=== PATIENT | male | born 1950 | race Caucasian/White ===

== ENCOUNTER 2018-11-22 14:36 | Emergency (ER) | payer MEDICARE, OTHER ==
[~2018-11-22] VITALS: Ht 175.3 cm; Wt 89.4 kg
[~2018-11-22 14:36] MED LIST: ALBU3IS INH; AMLO10 PO; ASPI81CH PO; AZIT250 PO; CARV6.25 PO; CEPH500 PO; CHOL10002 PO; DOCU100 PO; GEMF600 PO; LISI20 PO; Omeprazole20 M1 PO; Pravachol40 MG PO; TAMS.4ER PO; Zofran Odt4 MG SL
[2018-11-22] MEDS ORDERED: GUAI600T33 PO (15:28)
== END 2018-11-22 15:41 | disposition home or self-care (01) ==
LOC: ER 14:36
DX: B02.9 Zoster without complications (principal); Z79.899 Other long term (current) drug therapy; Z79.82 Long term (current) use of aspirin; I10 Essential (primary) hypertension; J44.9 Chronic obstructive pulmonary disease, unspecified; I25.10 Atherosclerotic heart disease of native coronary artery without angina pectoris; I25.2 Old myocardial infarction; F17.210 Nicotine dependence, cigarettes, uncomplicated
CPT/HCPCS: 99282

== ENCOUNTER → 2018-12-02 | Outpatient (CLI) | payer MEDICARE, OTHER ==
[~2018-12-02] MED LIST changes: +GUAI600T33 PO
[2018-12-02 17:37] LABS: Protein, Urine Quantitative 141.7 mg/dL (0.0-11.9)
== END | disposition home or self-care (01) ==
LOC: LAB SHORT 15:26 → LAB 15:26 → LAB FUT 11-23 15:00
PROVIDERS: Internal Medicine Nephrology
DX: Z79.01 Long term (current) use of anticoagulants (principal); Z51.81 Encounter for therapeutic drug level monitoring; N18.3 Chronic kidney disease, stage 3 (moderate); D63.1 Anemia in chronic kidney disease; N25.81 Secondary hyperparathyroidism of renal origin; E55.9 Vitamin D deficiency, unspecified; R76.9 Abnormal immunological finding in serum, unspecified; R94.5 Abnormal results of liver function studies; G60.9 Hereditary and idiopathic neuropathy, unspecified
CPT/HCPCS: 81050; 82043; 82570; 84156

== ENCOUNTER 2019-04-03 09:16 | Inpatient (IN) | payer MEDICARE, OTHER ==
[~2019-04-03] VITALS: Ht 175.3 cm; Wt 82.8 kg
[~2019-04-03 09:16] MED LIST changes: -AMLO10 PO; -ASPI81CH PO; -CARV6.25 PO; -CHOL10002 PO; -DOCU100 PO; -GEMF600 PO; -LISI20 PO; -Omeprazole20 M1 PO; -Pravachol40 MG PO; -TAMS.4ER PO
[2019-04-03 09:38] LABS: BASOPHILS ABSOLUTE AUTO 0.03 K/mm3 (0.00-0.23); BASOPHILS PERCENT AUTO 0 % (0-2); EOSINOPHILS PERCENT AUTO 0 % (0-6); Hematocrit 36.8 % (37.0-53.0); Hemoglobin 12.4 g/dL (13.5-17.5); IMMATURE GRAN ABSOLUTE AUTO 0.05 K/mm3 (0.00-0.10); IMMATURE GRAN PERCENT AUTO 0 % (0-1); LYMPHOCYTES ABSOLUTE AUTO 0.85 K/mm3 (0.84-5.20); LYMPHOCYTES PERCENT AUTO 7 % (21-46); MONOCYTES ABSOLUTE AUTO 0.64 K/mm3 (0.16-1.47); MONOCYTES PERCENT AUTO 5 % (4-13); Mean Corpuscular HGB Conc 33.7 g/dL (31.5-36.5); Mean Corpuscular Volume 89 fL (80-100); Mean Platelet Volume 10.3 fL (9.1-12.4); NEUTROPHILS ABSOLUTE AUTO 10.93 K/mm3 (1.96-9.15); NEUTROPHILS PERCENT AUTO 88 % (41-73); Platelet Count 198 K/mm3 (150-400); RDW Coefficient Variation 13.5 % (11.7-14.2); RDW Standard Deviation 44.3 fL (35.1-46.3); Red Blood Cell Count 4.13 M/mm3 (4.30-5.90)
[2019-04-03 09:59] LABS: Alanine Aminotransfer (ALT/SGP 12 U/L (12-78); Albumin, Blood 3.5 g/dL (3.4-5.0); Alk Phos 64 U/L (50-136); Anion Gap 8 mmol/L (6-16); Aspartate Aminotrans (AST/SGOT 14 U/L (12-37); Bilirubin, Total 0.4 mg/dL (0.1-1.0); Blood Urea Nitrogen 23 mg/dL (8-24); Bun/Creatinine Ratio 13.5 (12.0-20.0); CO2, Blood 22 mmol/L (21-32); Calcium, Blood 8.5 mg/dL (8.5-10.1); Chloride, Blood 104 mmol/L (98-108); Globulin, Blood 3.5 g/dL (2.2-4.0); Glomerular Filtration Rate 43 (60-); Glucose, Blood 135 mg/dL (70-99); Sodium, Blood 134 mmol/L (136-145); Troponin I <0.015 ng/mL (0.000-0.040)
[2019-04-03 10:56] LABS: PCO2 Arterial 35.2 mmHg (35-45); pH Blood Arterial 7.42 (7.35-7.45)
[2019-04-03 12:17] LABS: Influenza A Negative (NEGATIVE); Influenza B Negative (NEGATIVE)
[2019-04-03] MEDS ORDERED: Pravachol40 MG PO (12:47)
[2019-04-03] MEDS ORDERED: TAMS.4ER PO (12:47)
[2019-04-03] MEDS ORDERED: Omeprazole20 M1 PO (12:48)
[2019-04-03] MEDS ORDERED: ZESTRIL40 M1 PO (12:48)
[2019-04-03] MEDS ORDERED: CARVEDILOL12.5 MG PO (12:48)
[2019-04-03] MEDS ORDERED: AMLO10 PO (12:49)
[2019-04-03] MEDS ORDERED: GEMF600 PO (12:49)
[2019-04-03] MEDS ORDERED: CALC.25 PO (12:50)
[2019-04-03] MEDS ORDERED: RAYALDEE30 MCG PO (12:50)
[2019-04-03] MEDS ORDERED: Aspir 8181 MG PO (12:52)
[2019-04-03] MEDS ORDERED: DOCU100 PO (12:53)
[2019-04-03] MEDS ORDERED: THERA-D2000 UNIT PO (12:53)
[2019-04-03] MEDS ORDERED: Fish Oil 10001000 MG PO (14:03)
[2019-04-03] MEDS ORDERED: MUCUS RELIEF400 MG PO (14:04)
[2019-04-03] MEDS ORDERED: VITAMIN B-121000 MC3 PO (14:04)
--- NOTE | 2019-04-03 17:25 | NUR ---
ADMITTED TO PCU 8. PT ARRIVED VIA GURNEY ESCORTED BY LEXI ALLISON. RN REPORTED THAT PT DROPPED HIS O2 SATS DURING TRANSPORT AND WAS PLACED ON 10L OXYMIZER. PT WAS TRANSFERRED TO THE HOSPITAL BED AND ENCOURAGED TO TAKE DEEP BREATHS AND COUGH. PT'S SP02 IMPROVED TO 92% ON 10L. PT DECLINES FEELING SOB.
[2019-04-03 22:16] LABS: Adenovirus Not Detected (NOT DETECT); Coronavirus 229E Not Detected (NOT DETECT); Coronavirus HKU1 Not Detected (NOT DETECT); Coronavirus NL63 Not Detected (NOT DETECT); Coronavirus OC43 Not Detected (NOT DETECT); Human Metapneumovirus Not Detected (NOT DETECT); Human Rhinovirus/Enterovirus Not Detected (NOT DETECT); Influenza A Not Detected (NOT DETECT); Influenza A/2009-H1 Not Detected (NOT DETECT); Influenza A/H1 Not Detected (NOT DETECT); Influenza A/H3 Not Detected (NOT DETECT); Influenza B Not Detected (NOT DETECT); Parainfluenza Virus 1 Detected (NOT DETECT); Parainfluenza Virus 2 Not Detected (NOT DETECT); Parainfluenza Virus 3 Not Detected (NOT DETECT); Parainfluenza Virus 4 Not Detected (NOT DETECT); Respiratory Syncytial Virus Not Detected (NOT DETECT)
[2019-04-03 22:17] LABS: Bordetella pertussis Not Detected (NOT DETECT); Chlamydophila pneumoniae Not Detected (NOT DETECT); Mycoplasma pneumoniae Not Detected (NOT DETECT)
--- NOTE | 2019-04-04 02:58 | NUR ---
SHIFT SUMMARY: 68 Y/O MALE HAD UNEVENTFUL NIGHT AT BEGINNING OF SHIFT WHILE WEARING O2 AT 10L/M VIA OXIMIZER, VOIDING QS WITHOUT ISSUE; PT AT 0230 BECAME INCREASINGLY ANXIOUS WITH PATIENT REMOVING CPAP, WAS CONTACTED BY REN ALLISON, CHARGE NURSE AND AN AIRVO AT 50 LITERS AT 85% WAS APPLIED WITH O2 SATS NOW 90% WHILE SITTING HIGH FOWLERS POSITION, ALERT AND ORIENTED X 4, DENIES PAIN, BED LOW POSITION WITH CALL LIGHT AT SIDE.
[2019-04-04 03:55] LABS: BASOPHILS ABSOLUTE AUTO 0.02 K/mm3 (0.00-0.23); BASOPHILS PERCENT AUTO 0 % (0-2); EOSINOPHILS PERCENT AUTO 0 % (0-6); Hematocrit 36.1 % (37.0-53.0); IMMATURE GRAN ABSOLUTE AUTO 0.05 K/mm3 (0.00-0.10); IMMATURE GRAN PERCENT AUTO 0 % (0-1); LYMPHOCYTES ABSOLUTE AUTO 1.07 K/mm3 (0.84-5.20); LYMPHOCYTES PERCENT AUTO 8 % (21-46); MONOCYTES ABSOLUTE AUTO 0.75 K/mm3 (0.16-1.47); MONOCYTES PERCENT AUTO 5 % (4-13); Mean Corpuscular HGB 29.9 pg (26.0-34.0); Mean Corpuscular HGB Conc 33.2 g/dL (31.5-36.5); Mean Corpuscular Volume 90 fL (80-100); Mean Platelet Volume 10.2 fL (9.1-12.4); NEUTROPHILS ABSOLUTE AUTO 12.29 K/mm3 (1.96-9.15); NEUTROPHILS PERCENT AUTO 87 % (41-73); Platelet Count 181 K/mm3 (150-400); RDW Coefficient Variation 13.5 % (11.7-14.2); Red Blood Cell Count 4.01 M/mm3 (4.30-5.90); White Blood Cell Count 14.18 K/mm3 (4.00-11.30)
[2019-04-04 04:16] LABS: Bun/Creatinine Ratio 14.4 (12.0-20.0); Calcium, Blood 8.5 mg/dL (8.5-10.1); Creatinine, Blood 1.53 mg/dL (0.60-1.20); Potassium, Blood 3.6 mmol/L (3.5-5.5)
--- NOTE | 2019-04-04 06:00 | NUR ---
ASSUMED CARE AT 0330. VERY COMFORTABLE ON AIRVO NOW AT 90% AND 50L. LUNG VERY COARSE T/O BOTH LUMGS . VERY HOARSE/HARSH/LOOSE COUGH. NON EXPECTORATED. MENTATION CLEAR WHEN CONVERSING
--- NOTE | 2019-04-04 08:00 | NUR ---
ASSUMED CARE PT ALERT AND ORIENTED. VS STABLE. 02 SATS 88-93% ON AIRVO 50L AND FIO2 90%. LS COARSE THROUGHOUT. OXYGEN NEEDS INCREASED SIGNIFICANTLY THROUGH THE NIGHT. DR. LAU CALLED AND NOTIFIED. NEW ORDERS TO RULE OUT PE, START IV SOLUMEDROL AND LASIX. PT HAS PRODUCTIVE COUGH WITH THICK GREEN SPUTUM. PT DESATURATES QUICKLY WITH MINIMAL MOVEMENT. NS INFUSING AT 150 TO BE DISCONTINUED. WILL CONTINUE TO MONITOR CLOSELY.
--- NOTE | 2019-04-04 17:50 | NUR ---
SHIFT SUMMARY PT ALERT AND ORIENTED. VS STABLE. HR NSR. BP STABLE. O2 SATS HAVE IMPROVED THIS AFTERNOON REMAINING ABOVE 90% ON AIRVO 50L FIO2 90%. PT DID USE CPAP WITH 15L BLEED IN FOR 2 HOURS THIS AFTERNOON WHILE SLEEPING. PT COUGHING UP THICK GREEN SPUTUM. PT REPORTS FEELING "EASIER TO BREATHE" THIS EVENING. PT DENIES ANY PAIN. WILL CONTINUE TO MONITOR AND REPORT TO ONCOMING RN. CALL LIGHT IN REACH.
[2019-04-05 04:11] LABS: BASOPHILS ABSOLUTE AUTO 0.02 K/mm3 (0.00-0.23); BASOPHILS PERCENT AUTO 0 % (0-2); EOSINOPHILS PERCENT AUTO 0 % (0-6); Hematocrit 36.5 % (37.0-53.0); Hemoglobin 12.3 g/dL (13.5-17.5); IMMATURE GRAN ABSOLUTE AUTO 0.08 K/mm3 (0.00-0.10); IMMATURE GRAN PERCENT AUTO 1 % (0-1); LYMPHOCYTES ABSOLUTE AUTO 0.65 K/mm3 (0.84-5.20); LYMPHOCYTES PERCENT AUTO 4 % (21-46); MONOCYTES ABSOLUTE AUTO 0.32 K/mm3 (0.16-1.47); MONOCYTES PERCENT AUTO 2 % (4-13); Mean Corpuscular HGB 30.3 pg (26.0-34.0); Mean Corpuscular HGB Conc 33.7 g/dL (31.5-36.5); Mean Corpuscular Volume 90 fL (80-100); Mean Platelet Volume 10.6 fL (9.1-12.4); NEUTROPHILS ABSOLUTE AUTO 13.96 K/mm3 (1.96-9.15); NEUTROPHILS PERCENT AUTO 93 % (41-73); Platelet Count 162 K/mm3 (150-400); RDW Coefficient Variation 13.2 % (11.7-14.2); RDW Standard Deviation 44.4 fL (35.1-46.3); Red Blood Cell Count 4.06 M/mm3 (4.30-5.90); White Blood Cell Count 15.03 K/mm3 (4.00-11.30)
[2019-04-05 04:40] LABS: Bun/Creatinine Ratio 16.3 (12.0-20.0); Calcium, Blood 8.5 mg/dL (8.5-10.1); Creatinine, Blood 1.47 mg/dL (0.60-1.20); Potassium, Blood 3.8 mmol/L (3.5-5.5)
--- NOTE | 2019-04-05 05:40 | NUR ---
SHIFT SUMMARY PT RESTING IN ROOM COMFORTABLY AT THIS TIME. NO ACUTE CHANGES IN STATUS T/O NIGHT. PT SLEPT IN SHORT PERIODS, AND WOKE EASILY TO VERBAL. RESP EVEN, AND SLIGHTLY TACHY W/ EXERTION AT TIMES ON AIRVO AT 55L SATS 88-93%. PT WORE CPAP FOR SHIORT PERIODS OF TIME, WHEN ON CPAP SATS WERE >96%. DENIED CP T/O NIGHT. REPORTS COUGH THAT WAS BECOMING MORE PRODUCTIVE BUT STILL UNABLE TO COUGH ANY SPUTUM UP. DENIED OTHER NEEDS. PT ABLE TO STAND AND USE BSC WITH SBA, AND SOME DYSNPNEA W/ EXERTION. CALL LIGHT IN REACH.
--- NOTE | 2019-04-05 08:14 | NUR ---
pt laying in bed awake a/ox3, pleasant and cooperative with care, follows commands well, denies pain, states he is feeling a lot better than he was when he came in, he is currently on airvo at 55l, 85% lungs are course t/o, resp even and unlabored, no cough noted at this time, he report bringing up some phlem yesterday, hrr, tele in place running sr per monitor, see strip, no edema noted, ppp+1, cap refill <3sec, vs stable, afebrile, iv site is clear and patent, btx4, abd flat soft nontender, voids without diff, skin c/w/d, maew, sheela, call light in reach.
--- NOTE | 2019-04-05 12:28 | NUR ---
pt states he is doing ok, he is laying leaned over on his left side, asked him several times if I can reposition him, he said he can move himself and is comfortable right now, eating lunch at this time, no further needs. call light in reach.
--- NOTE | 2019-04-05 14:22 | NUR ---
Patient is lying in bed and alert. Patient openly shares about his family history and family unit complications, about his spiritual journey (patient currently attends [facility] in [place]) and about his many careers. Patient tells about the pain and struggles in life and also the victories. I listen empathically, hear confession, normalize patient experience, reinforce helpful attitudes and practices and provide pastoral clinical counselor and prayer. Patient responds well and shows signs of catharsis. Patient voices appreciation for the visit. I will continue to remain avialable to patient and family.
--- NOTE | 2019-04-05 18:16 | NUR ---
pt sitting up in bed eating dinner and visiting with people in room. states he's doing good, sats are 94%, denies any complaints or needs at this time, call light in reach.
[2019-04-06 03:58] LABS: BASOPHILS ABSOLUTE AUTO 0.01 K/mm3 (0.00-0.23); BASOPHILS PERCENT AUTO 0 % (0-2); EOSINOPHILS PERCENT AUTO 0 % (0-6); Hematocrit 34.6 % (37.0-53.0); Hemoglobin 11.8 g/dL (13.5-17.5); IMMATURE GRAN PERCENT AUTO 1 % (0-1); LYMPHOCYTES ABSOLUTE AUTO 0.63 K/mm3 (0.84-5.20); LYMPHOCYTES PERCENT AUTO 4 % (21-46); MONOCYTES ABSOLUTE AUTO 0.25 K/mm3 (0.16-1.47); MONOCYTES PERCENT AUTO 2 % (4-13); Mean Corpuscular HGB 29.9 pg (26.0-34.0); Mean Corpuscular HGB Conc 34.1 g/dL (31.5-36.5); Mean Corpuscular Volume 88 fL (80-100); Mean Platelet Volume 11.1 fL (9.1-12.4); NEUTROPHILS ABSOLUTE AUTO 15.06 K/mm3 (1.96-9.15); NEUTROPHILS PERCENT AUTO 94 % (41-73); Platelet Count 180 K/mm3 (150-400); RDW Coefficient Variation 13.2 % (11.7-14.2); RDW Standard Deviation 41.9 fL (35.1-46.3); Red Blood Cell Count 3.95 M/mm3 (4.30-5.90); White Blood Cell Count 16.05 K/mm3 (4.00-11.30)
[2019-04-06 04:24] LABS: Albumin, Blood 2.7 g/dL (3.4-5.0); Albumin/Globulin Ratio 0.7 (0.8-1.8); Bilirubin, Total 0.2 mg/dL (0.1-1.0); Bun/Creatinine Ratio 20.7 (12.0-20.0); Calcium, Blood 8.4 mg/dL (8.5-10.1); Creatinine, Blood 1.69 mg/dL (0.60-1.20); Globulin, Blood 3.7 g/dL (2.2-4.0); Potassium, Blood 3.9 mmol/L (3.5-5.5); Total Protein, Blood 6.4 g/dL (6.4-8.2)
--- NOTE | 2019-04-06 18:22 | NUR ---
SHIFT SUMMARY PT RESTING IN BED THROUGHOUT THE DAY. VSS. ALERT AND ORIENTED X3. DENIES PAIN THROUGHOUT THE DAY. LUNG SOUNDS COARSE THROUGHOUT, ON AIRVO 55L / 60% SATURATIONS 89-93%. NSR RATE 70-80s PER TELEMETRY. C/O NUMBNESS / TINGLING TO RIGHT HAND AND BLE. PT UP TO BEDSIDE COMMODE AND UP TO RECLINER TODAY AND TOLERATED WELL. WILL CONTINUE TO MONITOR AND REPORT OFF TO LOBBY PORTER RN.
[2019-04-07 03:47] LABS: BASOPHILS ABSOLUTE AUTO 0.01 K/mm3 (0.00-0.23); BASOPHILS PERCENT AUTO 0 % (0-2); EOSINOPHILS PERCENT AUTO 0 % (0-6); Hematocrit 35.8 % (37.0-53.0); Hemoglobin 12.5 g/dL (13.5-17.5); IMMATURE GRAN ABSOLUTE AUTO 0.16 K/mm3 (0.00-0.10); IMMATURE GRAN PERCENT AUTO 1 % (0-1); LYMPHOCYTES ABSOLUTE AUTO 0.95 K/mm3 (0.84-5.20); LYMPHOCYTES PERCENT AUTO 6 % (21-46); MONOCYTES ABSOLUTE AUTO 0.56 K/mm3 (0.16-1.47); MONOCYTES PERCENT AUTO 4 % (4-13); Mean Corpuscular HGB 30.3 pg (26.0-34.0); Mean Corpuscular HGB Conc 34.9 g/dL (31.5-36.5); Mean Corpuscular Volume 87 fL (80-100); Mean Platelet Volume 10.8 fL (9.1-12.4); NEUTROPHILS ABSOLUTE AUTO 13.73 K/mm3 (1.96-9.15); NEUTROPHILS PERCENT AUTO 89 % (41-73); Platelet Count 207 K/mm3 (150-400); RDW Coefficient Variation 13.1 % (11.7-14.2); RDW Standard Deviation 41.3 fL (35.1-46.3); Red Blood Cell Count 4.13 M/mm3 (4.30-5.90); White Blood Cell Count 15.41 K/mm3 (4.00-11.30)
[2019-04-07 04:05] LABS: Bun/Creatinine Ratio 24.1 (12.0-20.0); Calcium, Blood 8.4 mg/dL (8.5-10.1); Creatinine, Blood 1.7 mg/dL (0.60-1.20); Potassium, Blood 4.1 mmol/L (3.5-5.5)
--- NOTE | 2019-04-07 06:10 | NUR ---
SHIFT SUMMARY PT SLEEPING IN ROOM COMFORTABLY AT THIS TIME. PT HAD NO ACUT CHANGES IN STATUS T/O NIGHT. DENIED CP. PT ONLY REPORTED DYSNPEA W/ EXERTION WHEN GETTING UP TO BSC. RESP OTHERWSIE EVEN UNLABORED AT REST ON AIRVO 55L AND 60%. PT TOLERATING AIRVO WELL. DID NOT WEAR CPAP AT ALL DURING NIGHT. PT SLEPT WELL. UP TO BSC W/ SBA. DENIED PAIN. CALL LIGHT IN REACH.
--- NOTE | 2019-04-07 08:44 | NUR ---
pt laying in bed on his side, eating breakfast, a/ox3, pleasant and cooperative with care, follows commands well, denies pain, lungs are course t/o, with some wheezing noted to bases, he continues on airvo, reports productive cough of yellow/white sputum, hrr, tele in place running sr per monitor, see strip, no edema noted, ppp+1, cap refill <3sec, vs stable, afebrile, iv site is clear and patent, btx4, abd flat soft nontender, he reports no bm since being in hosp, will ask for bowel care, voids without diff, skin c/w/d, maew, sheela, call light in reach.
--- NOTE | 2019-04-07 10:49 | NUR ---
Pt alert working on his computer states he is better today. Review of symptoms he has minimal pain mostly to his neck denies headaches or dizziness, no nausea, moderate appetite, some constipation. Sleep is ok sometimes has to sleep in chair. Pt. has a strong support system with his children. He states he does not have a formal will or poa or AD. He states that his children are well versed in his wishes and desires and they are willing to make decisions. 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 We discussed future care and help to preserve energy. He sees his primay doctor and doctor Tovar for his renal function. He has not seen a staff technologist in quite some time. Pt did not want to discuss prognosis or his future living situaltion. His daughter is staying with him more. He stays alone at night with his emergency alert button. He is secure in getting his medications and groceries. We discussed palliation and comfort of ventilation and airhunger. Pt is a high fall risk and high risk of readmission. He states he is ready to quit smoking. His family is going to quit also to support him. We discussed filling out a POLST to have in his home and on record. He will speak with his daughte and we will fill one out. Will review pt with care team for plan of care strategies. Suggest hisgh risk program and Pulmonology consult.
--- NOTE | 2019-04-07 12:12 | NUR ---
pt doing well, he denies any complaints. states he will get up to chair for lunch, no needs at this time, did get miralax ordered for him. call light in reach.
--- NOTE | 2019-04-07 14:45 | NUR ---
Spiritual care visit conducted. Patient is lying in bed and alert. Patient shares details about his past, his current struggles in life and about his medical conditions. I listen empathically, hear confession, provided spiritual guidance and prayer. Patient expresses appreciation for the visit.
--- NOTE | 2019-04-07 17:53 | NUR ---
pt doing well, no complaints or changes, he did have a bm after getting miralax, reports that feels better. no further changes this shift. call light in reach.
--- NOTE | 2019-04-07 18:22 | NUR ---
pt dompleted polst at this point still wants full treatment. Daughter was present and we discussed roa and AD they are motivated to complete. review of home health and home care with patient and encouraged. confrence with amedysis nurse on plan of care.
--- NOTE | 2019-04-07 20:00 | NUR ---
CARE ASSUMPTION PT A&O X4. VSS. LUNG SOUNDS COARSE W/ EXP WHEEZE IN BILAT BASES. SPO2 > 92% ON AIRVO @ 45L, 53%. MONITOR SHOWS NSR W/ PAC's, HR 70's. PT REPORTS "I'M FEELING MUCH BETTER. I WOKE UP TODAY, AND I'M DOING MUCH BETTER THAN WHEN I CAME IN." PT SBA TO BEDSIDE COMMODE W/ NO SOB. WILL CONTINUE TO MONITOR AND PROVIDE CARE.
--- NOTE | 2019-04-08 05:45 | NUR ---
SHIFT SUMMARY PT CONTINUES TO BE A&O X4. VSS. SPO2 > 92% ON AIRVO @ 45L, 53-54% THIS SHIFT. NO EVENTS OR CHANGES OVER NIGHT. WILL CONTINUE TO MONITOR AND PROVIDE CARE UNTIL REPORT OFF TO DAY SHIFT RN.
[2019-04-08 09:04] LABS: BASOPHILS ABSOLUTE AUTO 0.01 K/mm3 (0.00-0.23); BASOPHILS PERCENT AUTO 0 % (0-2); EOSINOPHILS ABSOLUTE AUTO 0.01 K/mm3 (0.00-0.68); EOSINOPHILS PERCENT AUTO 0 % (0-6); Hematocrit 36.3 % (37.0-53.0); Hemoglobin 12.4 g/dL (13.5-17.5); IMMATURE GRAN ABSOLUTE AUTO 0.13 K/mm3 (0.00-0.10); IMMATURE GRAN PERCENT AUTO 2 % (0-1); LYMPHOCYTES ABSOLUTE AUTO 1.54 K/mm3 (0.84-5.20); LYMPHOCYTES PERCENT AUTO 17 % (21-46); MONOCYTES ABSOLUTE AUTO 0.34 K/mm3 (0.16-1.47); MONOCYTES PERCENT AUTO 4 % (4-13); Mean Corpuscular HGB Conc 34.2 g/dL (31.5-36.5); Mean Corpuscular Volume 88 fL (80-100); NEUTROPHILS PERCENT AUTO 77 % (41-73); Platelet Count 196 K/mm3 (150-400); RDW Coefficient Variation 13.1 % (11.7-14.2); RDW Standard Deviation 41.9 fL (35.1-46.3); Red Blood Cell Count 4.13 M/mm3 (4.30-5.90); White Blood Cell Count 8.83 K/mm3 (4.00-11.30)
--- NOTE | 2019-04-08 09:09 | NUR ---
pt laying in bed working on his computer, and watching tv. a/ox3, pleasant and cooperative with care, follows commands well, denies pain, state he really feels better today, reports congestion is breaking up in his chest and is bringing up a lot of phlem, he describes it as white, it looks rizzo in the cup he is using, lungs are less course, can auscultate more air movement, he continues on airvo, resp even and unlabored at rest, does become mildly labored with activity, hrr, tele in place running sr per monitor, see strip, no edema noted, ppp+2, cap refill <3sec, vs stable, afebrile, iv site is clear and patent, to rac, btx4, abd flat soft nontender, last bm yesterday, voids without diff, skin c/w/d, maew, sheela, call light in reach.
[2019-04-08 09:19] LABS: Bun/Creatinine Ratio 23.3 (12.0-20.0); Calcium, Blood 8.3 mg/dL (8.5-10.1); Creatinine, Blood 1.63 mg/dL (0.60-1.20)
--- NOTE | 2019-04-08 11:46 | NUR ---
pt up to chair, is asking to go back to bed after 20 mins, encouraged to stay in chair for a few hrs. airvo has been titrated down. pt doing pretty well. call light in reach.
--- NOTE | 2019-04-08 17:36 | NUR ---
PT QUITE PLEASANT COOP AND TALKATIVE TODAY. DENIES PAIN. STATES FEELS BETTER. LUNGS MOSTLY CLEAR THIS BRIANNE. O2 DOWN TO 8L ON HI FLOW N/C. PT STATES TOLERATES WELL. NO OTHER CONCERNS AT THIS TIME. PT SITTING UP ON EDGE OF BED MOST OF AFT PLAYING ON COMPUTER. BED IN LOW POSITION, CALL LITE IN REACH, CALLS APPROP
--- NOTE | 2019-04-08 19:43 | NUR ---
CARE ASSUMPTION PT A&O X4. VSS. MONITOR SHOWS, SR, HR 70's. LUNG SOUNDS CLEAR, DIM IN BASES. SPO2 > 92% ON 8L HI-EVE NC. PT REPORTS "I CAN ACTUALLY TAKE DEEP BREATHS FOR A CHANGE." PT SITTING UP IN BED, REPORTS HAVING BEEN UP WALKING IN ROOM TODAY W/OUT SOB. PT STATES "I KNOW JUST EXACTLY HOW TO PACE MYSELF AND IMPROVE." PT EXPRESSES READINESS TO GO HOME, BUT STATES NOT WANTING TO GO UNTIL THE DOCTOR FEELS PT'S READY. WILL CONTINUE TO MONITOR AND PROVIDE CARE.
[2019-04-09 03:29] LABS: BASOPHILS ABSOLUTE AUTO 0.02 K/mm3 (0.00-0.23); BASOPHILS PERCENT AUTO 0 % (0-2); EOSINOPHILS ABSOLUTE AUTO 0.01 K/mm3 (0.00-0.68); EOSINOPHILS PERCENT AUTO 0 % (0-6); Hematocrit 35.4 % (37.0-53.0); Hemoglobin 11.9 g/dL (13.5-17.5); IMMATURE GRAN ABSOLUTE AUTO 0.21 K/mm3 (0.00-0.10); IMMATURE GRAN PERCENT AUTO 2 % (0-1); LYMPHOCYTES ABSOLUTE AUTO 1.24 K/mm3 (0.84-5.20); LYMPHOCYTES PERCENT AUTO 11 % (21-46); MONOCYTES ABSOLUTE AUTO 0.61 K/mm3 (0.16-1.47); MONOCYTES PERCENT AUTO 6 % (4-13); Mean Corpuscular HGB 30.2 pg (26.0-34.0); Mean Corpuscular HGB Conc 33.6 g/dL (31.5-36.5); Mean Corpuscular Volume 90 fL (80-100); Mean Platelet Volume 10.6 fL (9.1-12.4); NEUTROPHILS ABSOLUTE AUTO 8.82 K/mm3 (1.96-9.15); NEUTROPHILS PERCENT AUTO 81 % (41-73); Platelet Count 214 K/mm3 (150-400); RDW Coefficient Variation 12.9 % (11.7-14.2); RDW Standard Deviation 43.2 fL (35.1-46.3); Red Blood Cell Count 3.94 M/mm3 (4.30-5.90); White Blood Cell Count 10.91 K/mm3 (4.00-11.30)
[2019-04-09 03:48] LABS: Calcium, Blood 8.5 mg/dL (8.5-10.1); Creatinine, Blood 1.79 mg/dL (0.60-1.20); Potassium, Blood 4.2 mmol/L (3.5-5.5)
--- NOTE | 2019-04-09 06:12 | NUR ---
SHIFT SUMMARY PT CONTINUES TO BE A&O X4. VSS. MONITOR SHOWS NSR, HR 60's-70's. LUNG SOUNDS CLEAR, DIM IN BASES. SPO2 > 90% ON 8L HI-EVE NC, TITRATED UP TO 10L X1 THIS D/T PT DESAT TO 85% WHILE RESTING IN BED. PT RECOVERY W/ RETURN TO SPO2 > 90% ON 8L NC. PT SBA TO BATHROOM W/ FWW. WILL CONTINUE TO MONITOR AND PROVIDE CARE UNTIL REPORT OFF TO DAY SHIFT RN.
--- NOTE | 2019-04-09 11:30 | NUR ---
PT ARRIVED VIA W/C FROM PCU AND TRANSFERRED TO HIS BED. AWAKE AND ALERT SITTING ON SIDE OF BED PREPARING TO PLAY ON HIS COMPUTER. DENIES ANY RESP DISTRESS. OXYGEN ON ARRIVAL SET AT 4L/M. USES A FWW WITH AMBULATION. ARRIVED SOON AFTER HE CAME TO THE FLOOR.
--- NOTE | 2019-04-09 11:32 | NUR ---
MORNING NOTE ASSUMED CARE OF PT AT 0700, PATIENT AWAKE AND ALERT IN BED IN NO SIGNS OF DISTRESS. MEDICATED AND TREATED PT PER UNIT PROTOCOL AND MD ORDER, PT DENIES PAIN, DENIES SOB. WILL CONTINUE TO MONITOR, BED LOCKED AND LOW, CALL LIGHT W/IN REACH
--- NOTE | 2019-04-09 18:21 | NUR ---
SHIFT SUMMARY PT HAS BEEN A 1 PERSON ASSIST TO BATHROOM WITH FWW. OXYGEN HAS BEEN DECREASED TO 1.5L/M AND NO RESP DISTRESS. SATS IN MID 90'S. HAS DENIED PAIN. PLAYING WITH COMPUTER FOR ENTERTAINMENT. FEELS HE MAY GO HOME TOMORROW.
--- NOTE | 2019-04-10 03:10 | NUR ---
PT REMAINS ON O2 PER NC. RESP TREATMENTS PER RT - SEE CORRESPONDING DOCUMENTATION. HAS BEEN RESTING QUIETLY WITH FEW INTERRUPTIONS - AT WHICH TIMES HE SEEMS TO HAVE COUGHING SPELLS. cALL LIGHT IN REACH. wILL CONTINUE TO MONITOR.
[2019-04-10 04:48] LABS: BASOPHILS ABSOLUTE AUTO 0.04 K/mm3 (0.00-0.23); BASOPHILS PERCENT AUTO 0 % (0-2); EOSINOPHILS ABSOLUTE AUTO 0.05 K/mm3 (0.00-0.68); EOSINOPHILS PERCENT AUTO 0 % (0-6); Hematocrit 37.8 % (37.0-53.0); Hemoglobin 12.8 g/dL (13.5-17.5); IMMATURE GRAN ABSOLUTE AUTO 0.57 K/mm3 (0.00-0.10); IMMATURE GRAN PERCENT AUTO 4 % (0-1); LYMPHOCYTES ABSOLUTE AUTO 1.26 K/mm3 (0.84-5.20); LYMPHOCYTES PERCENT AUTO 9 % (21-46); MONOCYTES ABSOLUTE AUTO 0.88 K/mm3 (0.16-1.47); MONOCYTES PERCENT AUTO 6 % (4-13); Mean Corpuscular HGB 29.6 pg (26.0-34.0); Mean Corpuscular HGB Conc 33.9 g/dL (31.5-36.5); Mean Platelet Volume 10.6 fL (9.1-12.4); NEUTROPHILS ABSOLUTE AUTO 12.03 K/mm3 (1.96-9.15); NEUTROPHILS PERCENT AUTO 81 % (41-73); Platelet Count 264 K/mm3 (150-400); RDW Coefficient Variation 13.1 % (11.7-14.2); RDW Standard Deviation 41.2 fL (35.1-46.3); Red Blood Cell Count 4.33 M/mm3 (4.30-5.90); White Blood Cell Count 14.83 K/mm3 (4.00-11.30)
[2019-04-10 04:50] LABS: Mean Corpuscular Volume 87 fL (80-100)
[2019-04-10 04:59] LABS: Bun/Creatinine Ratio 25.6 (12.0-20.0); Calcium, Blood 8.5 mg/dL (8.5-10.1); Creatinine, Blood 1.76 mg/dL (0.60-1.20); Potassium, Blood 4.5 mmol/L (3.5-5.5)
[2019-04-10] MEDS ORDERED: ACET325 PO (11:55)
[2019-04-10] MEDS ORDERED: ALBU90OI INH (11:56)
[2019-04-10] MEDS ORDERED: ALBU3IS INH (11:57)
[2019-04-10] MEDS ORDERED: BENZ100A PO (11:57)
[2019-04-10] MEDS ORDERED: LEVO750 PO (11:58)
[2019-04-10] MEDS ORDERED: ONDA4ODT MM (11:59)
[2019-04-10] MEDS ORDERED: MIRALAX17 GM PO (12:00)
[2019-04-10] MEDS ORDERED: PRED10 PO (12:05)
[2019-04-10] MEDS ORDERED: Florastor250 MG PO (12:06)
--- NOTE | 2019-04-10 12:26 | NUR ---
8120 PATIENT TO DISCHARGE HOME ON HH. IV REMOVED WITH NO SS OF INFECTION NOTED. NURSE WENT OVER PAPER WORK AND EDUCATED PATIENT ON NEW MEDS AND INSTRUCTED TO FOLLOW UP WITH PCP. MEDS FAXED INTO [facility]. PATIENT TO USE WC TO BE TAKEN OUT TO DAUGHTERS CAR TO BE TAKEN HOME.
== END 2019-04-10 12:44 | disposition home health service (06) | DRG 193 ==
LOC: ER 09:16 → PCU 16:15 → MEDS 04-09 11:23 → ENPENDDIS 04-10 10:45 → EDPENDDIS 04-10 10:45 → MEDS 04-10 12:44
PROVIDERS: Emergency Medicine; ADMIT Family Medicine
DX: J13 Pneumonia due to Streptococcus pneumoniae (principal); J96.21 Acute and chronic respiratory failure with hypoxia; N17.9 Acute kidney failure, unspecified; J18.0 Bronchopneumonia, unspecified organism; J43.9 Emphysema, unspecified; Z95.5 Presence of coronary angioplasty implant and graft; I25.10 Atherosclerotic heart disease of native coronary artery without angina pectoris; I25.2 Old myocardial infarction; K21.9 Gastro-esophageal reflux disease without esophagitis; N40.0 Benign prostatic hyperplasia without lower urinary tract symptoms; F17.210 Nicotine dependence, cigarettes, uncomplicated; E87.5 Hyperkalemia; N18.3 Chronic kidney disease, stage 3 (moderate); I12.9 Hypertensive chronic kidney disease with stage 1 through stage 4 chronic kidney disease, or unspecified chronic kidney disease
CPT/HCPCS: 0099U; 36415; 36600; 71045; 71046; 71260; 80048; 80053; 82803; 83605; 83690; 83880; 84484; 85025; 85379; 87040; 87070; 87186; 87205; 87804; 93005; 93010; 94640; 94660; 94664; 94667; 94760; 94761; 94762; 96365; 97110; 97116; 97163; 97165; 97530; 98960; 99285-25; 99407; J0456; J0696; J1650; J1940; J1956; J2930; J7030; J7050; J7512; Q9967

== ENCOUNTER → 2019-06-01 | Outpatient (CLI) | payer MEDICARE, OTHER ==
[~2019-06-01] MED LIST changes: +ACET325 PO; +ALBU90OI INH; +AMLO10 PO; +Aspir 8181 MG PO; +BENZ100A PO; +CALC.25 PO; +CARVEDILOL12.5 MG PO; +DOCU100 PO; +Fish Oil 10001000 MG PO; +Florastor250 MG PO; +GEMF600 PO; +LEVO750 PO; +MIRALAX17 GM PO; +MUCUS RELIEF400 MG PO; +ONDA4ODT MM; +Omeprazole20 M1 PO; +PRED10 PO; +Pravachol40 MG PO; +RAYALDEE30 MCG PO; +TAMS.4ER PO; +THERA-D2000 UNIT PO; +VITAMIN B-121000 MC3 PO; +ZESTRIL40 M1 PO
== END ==
LOC: LAB 12:50 → LAB SHORT 12:50 → LAB FUT 05-30 13:45
PROVIDERS: Internal Medicine Nephrology
DX: N18.3 Chronic kidney disease, stage 3 (moderate) (principal); D63.1 Anemia in chronic kidney disease; R80.9 Proteinuria, unspecified; N40.1 Benign prostatic hyperplasia with lower urinary tract symptoms; D50.9 Iron deficiency anemia, unspecified
CPT/HCPCS: 81050; 82043; 82570; 84156

== ENCOUNTER → 2019-08-10 | Outpatient (CLI) | payer MEDICARE, OTHER ==
[2019-08-12 17:13] LABS: Creatinine Urine 74.8 mg/dL (27.00-270.00); Protein, Urine Quantitative 167.1 mg/dL (0.0-11.9)
== END | disposition home or self-care (01) ==
LOC: LAB SHORT 12:30 → OLS 12:30 → LAB FUT 08-08 13:05
PROVIDERS: Internal Medicine Nephrology
DX: N18.3 Chronic kidney disease, stage 3 (moderate) (principal); D63.1 Anemia in chronic kidney disease; N25.81 Secondary hyperparathyroidism of renal origin; E55.9 Vitamin D deficiency, unspecified; E78.00 Pure hypercholesterolemia, unspecified
CPT/HCPCS: 81050; 82108; 82570; 84156

== ENCOUNTER → 2019-12-06 | Outpatient (CLI) | payer MEDICARE, OTHER ==
[2019-12-06 17:18] LABS: Creatinine Urine 48.8 mg/dL (27.00-270.00); Protein, Urine Quantitative 70.8 mg/dL (0.0-11.9)
== END | disposition home or self-care (01) ==
LOC: LAB 14:55 → LAB SHORT 14:55 → LAB FUT 12-03 13:10
PROVIDERS: Internal Medicine Nephrology
DX: N18.3 Chronic kidney disease, stage 3 (moderate) (principal); D63.1 Anemia in chronic kidney disease; N25.81 Secondary hyperparathyroidism of renal origin; E55.9 Vitamin D deficiency, unspecified; E78.00 Pure hypercholesterolemia, unspecified
CPT/HCPCS: 81050; 82043; 82570; 84156

== ENCOUNTER → 2020-03-20 | Outpatient (CLI) | payer MEDICARE, OTHER ==
[2020-03-20 16:39] LABS: Calcium, Blood 9.3 mg/dL (8.5-10.1); Creatinine, Blood 2.24 mg/dL (0.60-1.20)
== END ==
LOC: LAB SHORT 14:53 → OLS 14:53 → LAB FUT 10-25 10:15
PROVIDERS: Internal Medicine Nephrology; Student in an Organized Health Care Education/Training Program
DX: Z12.5 Encounter for screening for malignant neoplasm of prostate (principal); N18.4 Chronic kidney disease, stage 4 (severe); N25.81 Secondary hyperparathyroidism of renal origin; E55.9 Vitamin D deficiency, unspecified
CPT/HCPCS: 36415; 82306; 82310; 82565; 83970; G0103

== ENCOUNTER → 2020-05-01 | Outpatient (CLI) | payer MEDICARE, SELFPAY ==
[2020-05-01 14:36] LABS: LDL/HDL RATIO 3.1; Very Low Density Lipoprot Chol 31 mg/dL (6-32)
[2020-05-01 14:37] LABS: Alanine Aminotransfer (ALT/SGP 16 U/L (12-78); Albumin, Blood 3.5 g/dL (3.4-5.0); Alk Phos 62 U/L (50-136); Anion Gap 9 mmol/L (6-16); Aspartate Aminotrans (AST/SGOT 11 U/L (12-37); Bilirubin, Total 0.5 mg/dL (0.1-1.0); Blood Urea Nitrogen 34 mg/dL (8-24); Bun/Creatinine Ratio 14.7 (12.0-20.0); CHOL/HDL RATIO 5.6; CO2, Blood 20 mmol/L (21-32); Calcium, Blood 9.4 mg/dL (8.5-10.1); Chloride, Blood 110 mmol/L (98-108); Cholesterol 117 mg/dL (50-200); Creatinine, Blood 2.32 mg/dL (0.60-1.20); Globulin, Blood 3.6 g/dL (2.2-4.0); Glomerular Filtration Rate 30 (60-); Glucose, Blood 86 mg/dL (70-99); HDL Cholesterol 21 mg/dL (>39); Low Density Lipoprotein Chol 65 mg/dL (0-110); Potassium, Blood 4.3 mmol/L (3.5-5.5); Sodium, Blood 139 mmol/L (136-145); Total Protein, Blood 7.1 g/dL (6.4-8.2); Triglycerides 155 mg/dL (30-160)
== END | disposition home or self-care (01) ==
LOC: LAB SHORT 12:33 → LAB 12:33
PROVIDERS: Nurse Practitioner
DX: E78.5 Hyperlipidemia, unspecified (principal); I10 Essential (primary) hypertension
CPT/HCPCS: 80053; 80061

== ENCOUNTER 2022-02-14 15:45 | Inpatient (IN) | payer MEDICARE ==
[~2022-02-14] VITALS: Ht 175.3 cm; Wt 72.0 kg
[~2022-02-14 15:45] MED LIST changes: -AMLODIPINE BESY10 MG PO; -ANORO ELLIPTA1 EAC1 IH; -Carvedilol12.5 MG PO; -GEMFIBROZIL600 MG PO; -GUAI200 PO; -LISI20 PO; -NICODERM CQ1 EA17 TOP; -OMEP20ER PO; -PRAV20 PO; -TAMSULOSIN HCL0.4 M1 PO; -VISBIOME 112.51 EACH PO
[2022-02-14 16:19] LABS: BASOPHILS ABSOLUTE AUTO 0.01 K/mm3 (0.00-0.23); BASOPHILS PERCENT AUTO 0 % (0-2); EOSINOPHILS ABSOLUTE AUTO 0.01 K/mm3 (0.00-0.68); EOSINOPHILS PERCENT AUTO 0 % (0-6); Hematocrit 30.7 % (37.0-53.0); IMMATURE GRAN ABSOLUTE AUTO 0.03 K/mm3 (0.00-0.10); IMMATURE GRAN PERCENT AUTO 1 % (0-1); LYMPHOCYTES ABSOLUTE AUTO 0.64 K/mm3 (0.84-5.20); LYMPHOCYTES PERCENT AUTO 15 % (21-46); MONOCYTES ABSOLUTE AUTO 0.12 K/mm3 (0.16-1.47); MONOCYTES PERCENT AUTO 3 % (4-13); Mean Corpuscular HGB 31.6 pg (26.0-34.0); Mean Corpuscular HGB Conc 35.8 g/dL (31.5-36.5); Mean Corpuscular Volume 88 fL (80-100); Mean Platelet Volume 10.8 fL (9.1-12.4); NEUTROPHILS ABSOLUTE AUTO 3.41 K/mm3 (1.96-9.15); NEUTROPHILS PERCENT AUTO 81 % (41-73); Platelet Count 151 K/mm3 (150-400); RDW Standard Deviation 45.1 fL (35.1-46.3); Red Blood Cell Count 3.48 M/mm3 (4.30-5.90); White Blood Cell Count 4.22 K/mm3 (4.00-11.30)
[2022-02-14 16:38] LABS: Albumin, Blood 3.5 g/dL (3.4-5.0); Albumin/Globulin Ratio 1.1 (0.8-1.8); Bilirubin, Total 0.5 mg/dL (0.1-1.0); Bun/Creatinine Ratio 12.8 (12.0-20.0); Calcium, Blood 8.7 mg/dL (8.5-10.1); Creatinine, Blood 2.82 mg/dL (0.60-1.20); Globulin, Blood 3.3 g/dL (2.2-4.0); Magnesium, Blood 1.8 mg/dL (1.6-2.4); Potassium, Blood 4.2 mmol/L (3.5-5.5); Total Protein, Blood 6.8 g/dL (6.4-8.2)
[2022-02-14 17:37] LABS: Influenza A, PCR NEGATIVE (NEGATIVE); Influenza B, PCR NEGATIVE (NEGATIVE); Resp Syncytial Virus, PCR NEGATIVE (NEGATIVE)
[2022-02-14] MEDS ORDERED: AMLODIPINE BESY10 MG PO (18:19)
[2022-02-14] MEDS ORDERED: GEMFIBROZIL600 MG PO (18:20)
[2022-02-14] MEDS ORDERED: LISI20 PO ×2 (18:20→18:21)
[2022-02-14] MEDS ORDERED: OMEP20ER PO ×2 (18:20→18:21)
[2022-02-14] MEDS ORDERED: ANORO ELLIPTA1 EAC1 IH (18:21)
[2022-02-14] MEDS ORDERED: TAMSULOSIN HCL0.4 M1 PO (18:21)
[2022-02-14] MEDS ORDERED: PRAV20 PO (18:21)
[2022-02-14] MEDS ORDERED: Carvedilol12.5 MG PO (18:25)
[2022-02-14] MEDS ORDERED: GEMF600 PO (18:26)
[2022-02-14] MEDS ORDERED: Aspir 8181 MG PO (18:26)
[2022-02-14] MEDS ORDERED: GUAI200 PO (18:27)
[2022-02-14 19:40] LABS: SARS-Cov-2 (COVID-19) PCR, MMC POSITIVE (NEGATIVE)
[2022-02-14 20:43] LABS: Anti-Xa UFH, PHA Monitoring <0.10 IU/mL; International Normalized Ratio 1.08; Prothrombin Time Results 11.3 Sec (9.7-11.5)
[2022-02-15 03:58] LABS: Hematocrit 30.5 % (37.0-53.0); Hemoglobin 10.8 g/dL (13.5-17.5); Mean Corpuscular HGB 31.3 pg (26.0-34.0); Mean Corpuscular HGB Conc 35.4 g/dL (31.5-36.5); Mean Corpuscular Volume 88 fL (80-100); Mean Platelet Volume 10.8 fL (9.1-12.4); Platelet Count 160 K/mm3 (150-400); RDW Coefficient Variation 13.7 % (11.7-14.2); RDW Standard Deviation 44.5 fL (35.1-46.3); Red Blood Cell Count 3.45 M/mm3 (4.30-5.90); White Blood Cell Count 3.18 K/mm3 (4.00-11.30)
[2022-02-15 04:16] LABS: Albumin, Blood 3.2 g/dL (3.4-5.0); Anion Gap 11 mmol/L (6-16); Blood Urea Nitrogen 35 mg/dL (8-24); Bun/Creatinine Ratio 13.7 (12.0-20.0); CO2, Blood 16 mmol/L (21-32); Calcium, Blood 8.3 mg/dL (8.5-10.1); Chloride, Blood 107 mmol/L (98-108); Creatinine, Blood 2.56 mg/dL (0.60-1.20); Glomerular Filtration Rate 26 (60-); Glucose, Blood 140 mg/dL (70-99); Magnesium, Blood 1.7 mg/dL (1.6-2.4); Phosphorus, Blood 3.8 mg/dL (2.5-4.9); Sodium, Blood 134 mmol/L (136-145)
--- NOTE | 2022-02-15 07:42 | NUR ---
ASSUMED CARE: PT RESTING IN BOOKER'S POSITION. CONGESTED SOUNDING COUGH NOTED. 15L HNC. PT STATES DOES NOT WEAR OXYGENT AT HOME. ENCOURAGED HIM TO PRONE OR CHANGE POSITIONS AND TO LAY ON BACK LITTLE POSSIBLE. NSR IN 60S AT THIS TIME. DENIES FURTHER NEEDS OR CONCERNS.
--- NOTE | 2022-02-15 09:58 | NUR ---
PT REMAINS ON 15L, SATTING 88-95%. ENCOURAGING REPOSITIONING AND TELLING PT TO STAY OFF OF HIS BACK MUCH POSSIBLE. RESIDENT WAS AT BEDSIDE WITH PT AND WAS MADE AWARE
--- NOTE | 2022-02-15 17:40 | NUR ---
SHIFT SUMMARY: PT CURRENTLY ON 13L VIA [facility]. PT HAS BEEN LAYING ON SIDE OR DANGLING AT SIDE OF BED FOR MEALS AND HAS NOTED EASE OF BREATHING AND INCREASE IN OXYGEN SATURATION. INDEPENDENT WITH URINAL BUT HAS STAYED IN BED. NSR ON TELE. DENIES NEEDS OR CONCERNS.
--- NOTE | 2022-02-16 04:58 | NUR ---
SHIFT SUMMARY PT A&Ox4, CALLS AND COMMUNICATES NEEDS APPROPRIATELY. VSS, SINUS WITH PAC's 80's. SpO2> 92% ON 13L VIA HFNC, PT DESATURATES TO MID 80's WHEN GETTING UP TO EDGE OF BED, RECOVERS TO 90's BEFORE LYING BACK DOWN. PT UP TO EGDE OF BED TO USE URINAL INDEPENDENTLY THROUGHOUT SHIFT. NO ACUTE EVENTS. WILL REPORT OFF TO DAY SHIFT RN.
[2022-02-16 05:43] LABS: Hematocrit 31.8 % (37.0-53.0); Hemoglobin 11.1 g/dL (13.5-17.5)
[2022-02-16 06:00] LABS: Albumin, Blood 3.3 g/dL (3.4-5.0); Anion Gap 9 mmol/L (6-16); Blood Urea Nitrogen 37 mg/dL (8-24); Bun/Creatinine Ratio 15.2 (12.0-20.0); CO2, Blood 21 mmol/L (21-32); Calcium, Blood 8.6 mg/dL (8.5-10.1); Chloride, Blood 108 mmol/L (98-108); Creatinine, Blood 2.43 mg/dL (0.60-1.20); Glomerular Filtration Rate 28 (60-); Glucose, Blood 98 mg/dL (70-99); Magnesium, Blood 1.9 mg/dL (1.6-2.4); Phosphorus, Blood 2.2 mg/dL (2.5-4.9); Potassium, Blood 3.7 mmol/L (3.5-5.5); Sodium, Blood 138 mmol/L (136-145)
--- NOTE | 2022-02-16 18:33 | NUR ---
SHIFT SUMMARY PT A/O X4; PLEASANT AND COOPERATIVE WITH CARE. REPORTS THAT HIS BREATHING FEELS MUCH BETTER TODAY AND TITRATED DOWN TO 11 LITERS O2. NO COMPLAINTS THIS SHIFT. VSS.
[2022-02-17 04:45] LABS: Hematocrit 30.5 % (37.0-53.0); Hemoglobin 10.5 g/dL (13.5-17.5); Mean Corpuscular HGB 30.6 pg (26.0-34.0); Mean Corpuscular HGB Conc 34.4 g/dL (31.5-36.5); Mean Corpuscular Volume 89 fL (80-100); Mean Platelet Volume 11.2 fL (9.1-12.4); Platelet Count 204 K/mm3 (150-400); RDW Coefficient Variation 13.7 % (11.7-14.2); RDW Standard Deviation 44.9 fL (35.1-46.3); Red Blood Cell Count 3.43 M/mm3 (4.30-5.90); White Blood Cell Count 6.87 K/mm3 (4.00-11.30)
[2022-02-17 05:12] LABS: Anion Gap 9 mmol/L (6-16); Blood Urea Nitrogen 43 mg/dL (8-24); Bun/Creatinine Ratio 16.9 (12.0-20.0); CO2, Blood 24 mmol/L (21-32); Calcium, Blood 7.6 mg/dL (8.5-10.1); Chloride, Blood 106 mmol/L (98-108); Creatinine, Blood 2.55 mg/dL (0.60-1.20); Glomerular Filtration Rate 26 (60-); Glucose, Blood 96 mg/dL (70-99); Magnesium, Blood 1.9 mg/dL (1.6-2.4); Potassium, Blood 3.5 mmol/L (3.5-5.5); Sodium, Blood 139 mmol/L (136-145)
--- NOTE | 2022-02-17 05:30 | NUR ---
SHIFT SUMMARY PT A&Ox4, CALLS AND COMMINICATES NEEDS APPROPRIATELY. VSS, SINUS 80's. PT TOLERATED TITRATING O2 DOWN TO 8L FROM 11L. SpO2> 92% ON 8L VIA HFNC. PT DID NOT DESATURATE WITH HIS FREQUENT ACTIVITY OF GETTING TO THE EDGE OF THE BED INDENDENLY TO USE THE URINAL. DENIES SOB AND CP. NO ACUTE EVENTS. WILL REPORT TO DAY SHIFT RN.
--- NOTE | 2022-02-17 17:49 | NUR ---
Shift Summary Pt alert, oriented, appears to be sleeping intermittently. Up to side of bed ind with urinal. Pt urine foul smelling, pt reports dysuria and increased frequency, new orders for UA, will collect specimen. Pt denies pain, chest pain/pressure, sob, nausea, dizziness and numb/tingling t/o shift. This am pt spo2 >90% on 10l o2 via nc, titrated down to 4l o2 via nc, pt desaturated to 70-80's while sleeping, titrated back up to 7l o2 via nc. Tele sinus 60-70's, bp stable. Abd soft, nontender, pt reports passing flatulence. Other vss. No other acute changes noted. Will continue to monitor unitl report given to oncoming rn.
[2022-02-17 18:15] LABS: Source, Urine Clean Catch
[2022-02-17 18:22] LABS: Appearance, Urine Hazy (Clear); Bilirubin, Urine Neg (Neg); Blood, Urine 3+ (Neg); Color, Urine Yellow (P-Yellow); Glucose Qualitative, Urine Neg (Neg); Ketones, Urine Neg (Neg); Leukocyte Esterase, Urine 3+ (Neg); Nitrite, Urine Neg (Neg); Protein, Urine 3+ (Neg); Urobilinogen, Urine NORM (Normal)
[2022-02-17 18:58] LABS: Bacteria Many /hpf; Squamous Epithelial Cells Rare /hpf (Few)
[2022-02-18 04:22] LABS: Hematocrit 30.9 % (37.0-53.0); Hemoglobin 10.5 g/dL (13.5-17.5)
[2022-02-18 04:38] LABS: Anion Gap 6 mmol/L (6-16); Blood Urea Nitrogen 40 mg/dL (8-24); CO2, Blood 25 mmol/L (21-32); Calcium, Blood 7.8 mg/dL (8.5-10.1); Chloride, Blood 108 mmol/L (98-108); Creatinine, Blood 2.22 mg/dL (0.60-1.20); Glomerular Filtration Rate 31 (60-); Glucose, Blood 82 mg/dL (70-99); Magnesium, Blood 1.8 mg/dL (1.6-2.4); Phosphorus, Blood 2.4 mg/dL (2.5-4.9); Potassium, Blood 3.6 mmol/L (3.5-5.5); Sodium, Blood 139 mmol/L (136-145)
--- NOTE | 2022-02-18 05:26 | NUR ---
SHIFT SUMMARY PT A&Ox4, CALLS AND COMMUNICATES NEEDS APPROPRIATELY. VSS, SpO2> 92% ON 6L VIA NC, PT DENIES SOB. SINUS 70's, DENIES CP. PT DID NOT DESATURATE WHEN INDEPENDENTLY GETTING TO EDGE OF BED TO USE URINAL. PT STATES THAT HE FEELS MUCH BETTER. NO ACUTE EVENTS. WILL REPORT TO DAY SHIFT RN.
--- NOTE | 2022-02-18 17:56 | NUR ---
END OF SHIFT SUMMARY: PATIENT DENIED CHEST PAIN OR SHORTNESS OF BREATH THROUGHOUT SHIFT. PATIENT TOLERATED RIDE SIDED CHEST TUBE WELL. PATIENT REPORTED SOME PAIN AT INSERTION SITE WITH MOVEMENT. CHEST TUBE SET TO SUCTION PER ORDERS. MINIMAL SEROUS-SANGINOUS DRAINAGE IN TUBING. SEROUS-SANGINOUS DRAINAGE PRESENT IN BANDAGE AT INSERTION SITE - NO CHANGES THROUGHOUT THE DAY. PATIENT SPO2 FROM 91-94% THROUGHOUT THE DAY. PATIENT UP TO CHAIR FOR DINNER WITHOUT EXERTIONAL SHORTNESS OF BREATH, CHEST PAIN, OR DECREASE IN SPO2.
--- NOTE | 2022-02-18 18:12 | NUR ---
END OF SHIFT SUMMARY: PATIENT DENIED SHORTNESS OF BREATH OR DIFFICULTY BREATHING THROUGHOUT THE SHIFT. BREATHING WAS EVEN AND REGULAR. PATIENT UP TO THE CHAIR FOR BREAKFAST. NO EXERTIONAL SHORTNESS OF BREATH NOTED OR DECREASE IN SPO2. PATIENT MAINTAINED SPO2 OR 94-96% THROUGHOUT THE SHIFT. RT WAS ABLE TO TITRATE THE PATIENT DOWN TO 4L. PATIENT TOLERATED WITHOUT SHORTNESS OR BREATH OR DIFFICULTY BREATHING. PATIENT CONTINUES TO HAVE AN OCCASIONAL, NON-PRODUCTIVE COUGH.
[2022-02-19 04:53] LABS: Hematocrit 27.6 % (37.0-53.0); Hemoglobin 9.6 g/dL (13.5-17.5)
[2022-02-19 05:14] LABS: Albumin, Blood 2.7 g/dL (3.4-5.0); Anion Gap 7 mmol/L (6-16); Blood Urea Nitrogen 48 mg/dL (8-24); Bun/Creatinine Ratio 20.7 (12.0-20.0); CO2, Blood 22 mmol/L (21-32); Calcium, Blood 7.6 mg/dL (8.5-10.1); Chloride, Blood 108 mmol/L (98-108); Creatinine, Blood 2.32 mg/dL (0.60-1.20); Glomerular Filtration Rate 29 (60-); Glucose, Blood 81 mg/dL (70-99); Magnesium, Blood 1.6 mg/dL (1.6-2.4); Phosphorus, Blood 2.8 mg/dL (2.5-4.9); Potassium, Blood 3.6 mmol/L (3.5-5.5); Sodium, Blood 137 mmol/L (136-145)
--- NOTE | 2022-02-19 08:26 | NUR ---
SHIFT SUMMARY PT AOX3, SOME CONFUSION DURING SHIFT REGARDING SURROUNDINGS AND INSTRUCTIONS GIVEN BY THIS RN. PT CALLS [employer] SPECIALIST LIGHT FOR NEEDS. PULLS OFF 02 WHETHER BY ACCIDENT OR PURPOSEFUL, PT WAS UNAWARE O2 WAS OFF OR WHY ALARMS WERE SOUNDING. FREQUENTLY PULLED AGAINST IV TUBING WITHOUT REALIZING. PT UP TO BEDSIDE TO USE URINAL THROUGHOUT SHIFT. O2 TURNED UP TO 6-8 L D/T DESAT WITH ACTIVITY AND AFTER PULLING OFF O2.
[2022-02-19] MEDS ORDERED: LEVO750 PO (12:58)
[2022-02-19] MEDS ORDERED: NICODERM CQ1 EA17 TOP (12:59)
[2022-02-19] MEDS ORDERED: VISBIOME 112.51 EACH PO (12:59)
--- NOTE | 2022-02-19 16:42 | NUR ---
DISCHARGE SUMMARY S/P ARF c RESPIRATORY FAILURE, A/O X4, VSS, PT ABLE TO WEEN OFF O2 TO RA AND MAINTAIN SATURATION OVER 94%, TOLERATING DIET, VOIDING WELL. DISCUSSED DISCHARGE INFORAMTION WITH THE PATIENT INCLUDING HOME CARE, MEDICATION CHANGES INCLUDING CONFIRMING HIS PHARMACY, ACTIVITY, FOLOW UP APPOINTMENTS, AND CONTACT INFORMATION SHOULD QUESTIONS COME UP AFTER DISCHARGE. PT DENIES ANY QUESTIONS AT TIME OF DISCHARGE. IV ACCESS DEVICES REMOVED AND NONE IN PLACE AT TIME OF DEPARTURE. PT ESCORTED OUT VIA WC TO [employer]IVATE [employer] TO GO HOME.
== END 2022-02-19 15:44 | disposition home health service (06) | DRG 177 ==
LOC: ER 15:45 → PCU 18:42 → ERHOLD 18:42 → PCU 18:42
PROVIDERS: Family Medicine; Internal Medicine Nephrology; Nurse Practitioner Acute Care; Student in an Organized Health Care Education/Training Program; ADMIT Internal Medicine
PROC: 8E0ZXY6 Isolation (ICD-10-PCS; principal; 2022-02-14)
PROC: 3E0DX3Z Introduction of Anti-inflammatory into Mouth and Pharynx, External Approach (ICD-10-PCS; 2022-02-14)
PROC: XW0DXM6 Introduction of Baricitinib into Mouth and Pharynx, External Approach, New Technology Group 6 (ICD-10-PCS; 2022-02-14)
PROC: 5A0945A Assistance with Respiratory Ventilation, 24-96 Consecutive Hours, High Flow/Velocity Cannula (ICD-10-PCS; 2022-02-14)
PROC: XW033E5 Introduction of Remdesivir Anti-infective into Peripheral Vein, Percutaneous Approach, New Technology Group 5 (ICD-10-PCS; 2022-02-16)
DX: U07.1 COVID-19 (principal); J96.01 Acute respiratory failure with hypoxia; E87.29 Other acidosis; E87.1 Hypo-osmolality and hyponatremia; N17.9 Acute kidney failure, unspecified; N18.4 Chronic kidney disease, stage 4 (severe); I50.32 Chronic diastolic (congestive) heart failure; I13.0 Hypertensive heart and chronic kidney disease with heart failure and stage 1 through stage 4 chronic kidney disease, or unspecified chronic kidney disease; N39.0 Urinary tract infection, site not specified; F17.210 Nicotine dependence, cigarettes, uncomplicated; K21.9 Gastro-esophageal reflux disease without esophagitis; E83.39 Other disorders of phosphorus metabolism; I25.10 Atherosclerotic heart disease of native coronary artery without angina pectoris; D63.1 Anemia in chronic kidney disease; N40.0 Benign prostatic hyperplasia without lower urinary tract symptoms; J43.9 Emphysema, unspecified; Z87.01 Personal history of pneumonia (recurrent); Z86.73 Personal history of transient ischemic attack (TIA), and cerebral infarction without residual deficits; Z86.718 Personal history of other venous thrombosis and embolism; Z98.52 Vasectomy status; Z98.890 Other specified postprocedural states
CPT/HCPCS: 0241U; 36415; 71045; 71260; 76770; 80053; 80069; 81001; 83735; 83880; 84145; 84484; 85014; 85018; 85025; 85027; 85379; 85520; 85610; 85730; 87077; 87086; 87186; 93005; 93010; 93306; 93970; 94640; 94664; 94760; 94761; 94762; 97116; 97162; 97530; 99285-25; A9270; C9399; J0248; J0696; J1644; J3010; J7030; J7040; J7050; J7060; J7070; Q9967

== ENCOUNTER → 2022-02-14 | Outpatient (CLI) | payer MEDICARE ==
[~2022-02-14] MED LIST changes: +AMLODIPINE BESY10 MG PO; +ANORO ELLIPTA1 EAC1 IH; +Carvedilol12.5 MG PO; +GEMFIBROZIL600 MG PO; +GUAI200 PO; +LISI20 PO; +NICODERM CQ1 EA17 TOP; +OMEP20ER PO; +PRAV20 PO; +TAMSULOSIN HCL0.4 M1 PO; +VISBIOME 112.51 EACH PO
[2022-02-14 14:13] LABS: BASOPHILS ABSOLUTE AUTO 0.01 K/mm3 (0.00-0.23); BASOPHILS PERCENT AUTO 0 % (0-2); EOSINOPHILS ABSOLUTE AUTO 0.02 K/mm3 (0.00-0.68); EOSINOPHILS PERCENT AUTO 1 % (0-6); Hematocrit 30.2 % (37.0-53.0); Hemoglobin 10.6 g/dL (13.5-17.5); IMMATURE GRAN ABSOLUTE AUTO 0.03 K/mm3 (0.00-0.10); IMMATURE GRAN PERCENT AUTO 1 % (0-1); LYMPHOCYTES ABSOLUTE AUTO 0.84 K/mm3 (0.84-5.20); LYMPHOCYTES PERCENT AUTO 20 % (21-46); MONOCYTES ABSOLUTE AUTO 0.32 K/mm3 (0.16-1.47); MONOCYTES PERCENT AUTO 7 % (4-13); Mean Corpuscular HGB 30.9 pg (26.0-34.0); Mean Corpuscular HGB Conc 35.1 g/dL (31.5-36.5); Mean Corpuscular Volume 88 fL (80-100); Mean Platelet Volume 10.9 fL (9.1-12.4); NEUTROPHILS ABSOLUTE AUTO 3.09 K/mm3 (1.96-9.15); NEUTROPHILS PERCENT AUTO 72 % (41-73); Platelet Count 159 K/mm3 (150-400); RDW Coefficient Variation 14.1 % (11.7-14.2); RDW Standard Deviation 45.1 fL (35.1-46.3); Red Blood Cell Count 3.43 M/mm3 (4.30-5.90); White Blood Cell Count 4.31 K/mm3 (4.00-11.30)
[2022-02-14 15:07] LABS: Albumin, Blood 3.5 g/dL (3.4-5.0); Albumin/Globulin Ratio 1.1 (0.8-1.8); Bilirubin, Total 0.4 mg/dL (0.1-1.0); Bun/Creatinine Ratio 12.5 (12.0-20.0); Calcium, Blood 8.4 mg/dL (8.5-10.1); Creatinine, Blood 2.87 mg/dL (0.60-1.20); Globulin, Blood 3.3 g/dL (2.2-4.0); Potassium, Blood 4.1 mmol/L (3.5-5.5); Thyroid Stimulating Hormone 0.971 uIU/mL (0.360-4.800); Total Protein, Blood 6.8 g/dL (6.4-8.2)
== END | disposition home or self-care (01) ==
LOC: LAB 13:59 → LAB SHORT 13:59
PROVIDERS: Chiropractor
DX: J44.1 Chronic obstructive pulmonary disease with (acute) exacerbation (principal); R60.0 Localized edema; R53.83 Other fatigue
CPT/HCPCS: 80053; 83880; 84443; 84484; 85025; 85379

== ENCOUNTER → 2022-05-06 | Outpatient (CLI) | payer MEDICARE ==
[~2022-05-06] MED LIST changes: +AMLODIPINE BESY10 MG PO; +ANORO ELLIPTA1 EAC1 IH; +Carvedilol12.5 MG PO; +GEMFIBROZIL600 MG PO; +GUAI200 PO; +LISI20 PO; +NICODERM CQ1 EA17 TOP; +OMEP20ER PO; +PRAV20 PO; +TAMSULOSIN HCL0.4 M1 PO; +VISBIOME 112.51 EACH PO
[2022-05-16 21:07] LABS: METANEPHRINE, PL 31.7 pg/mL (0.0-88.0)
== END ==
LOC: LAB SHORT 07:40 → LAB 07:40
PROVIDERS: Internal Medicine Nephrology
DX: N18.30 Chronic kidney disease, stage 3 unspecified (principal); D63.1 Anemia in chronic kidney disease; E55.9 Vitamin D deficiency, unspecified; E29.1 Testicular hypofunction; E27.0 Other adrenocortical overactivity; N40.1 Benign prostatic hyperplasia with lower urinary tract symptoms; R76.9 Abnormal immunological finding in serum, unspecified; R94.5 Abnormal results of liver function studies; R94.6 Abnormal results of thyroid function studies
CPT/HCPCS: 83835

== ENCOUNTER → 2022-06-10 | Outpatient (CLI) | payer MEDICARE ==
[2022-06-10 17:23] LABS: BASOPHILS ABSOLUTE AUTO 0.05 K/mm3 (0.00-0.23); BASOPHILS PERCENT AUTO 1 % (0-2); EOSINOPHILS ABSOLUTE AUTO 0.18 K/mm3 (0.00-0.68); EOSINOPHILS PERCENT AUTO 2 % (0-6); Hematocrit 34.2 % (37.0-53.0); Hemoglobin 12.2 g/dL (13.5-17.5); IMMATURE GRAN ABSOLUTE AUTO 0.03 K/mm3 (0.00-0.10); IMMATURE GRAN PERCENT AUTO 0 % (0-1); LYMPHOCYTES ABSOLUTE AUTO 1.78 K/mm3 (0.84-5.20); LYMPHOCYTES PERCENT AUTO 20 % (21-46); MONOCYTES ABSOLUTE AUTO 0.61 K/mm3 (0.16-1.47); MONOCYTES PERCENT AUTO 7 % (4-13); Mean Corpuscular HGB Conc 35.7 g/dL (31.5-36.5); Mean Corpuscular Volume 87 fL (80-100); Mean Platelet Volume 10.2 fL (9.1-12.4); NEUTROPHILS ABSOLUTE AUTO 6.42 K/mm3 (1.96-9.15); NEUTROPHILS PERCENT AUTO 71 % (41-73); Platelet Count 253 K/mm3 (150-400); RDW Coefficient Variation 14.2 % (11.7-14.2); RDW Standard Deviation 45.3 fL (35.1-46.3); Red Blood Cell Count 3.93 M/mm3 (4.30-5.90); White Blood Cell Count 9.07 K/mm3 (4.00-11.30)
[2022-06-10 17:33] LABS: Albumin/Globulin Ratio 1.2 (0.8-1.8); Bilirubin, Total 0.3 mg/dL (0.1-1.0); Bun/Creatinine Ratio 10.5 (12.0-20.0); Calcium, Blood 8.9 mg/dL (8.5-10.1); Creatinine, Blood 2.66 mg/dL (0.60-1.20); Globulin, Blood 3.4 g/dL (2.2-4.0); Potassium, Blood 3.9 mmol/L (3.5-5.5); Total Protein, Blood 7.4 g/dL (6.4-8.2)
== END | disposition home or self-care (01) ==
LOC: LAB SHORT 17:17
PROVIDERS: Physician Assistant
DX: N39.0 Urinary tract infection, site not specified (principal); R06.00 Dyspnea, unspecified
CPT/HCPCS: 80053; 83880; 84484; 85025; 87077; 87086; 87186

== ENCOUNTER → 2022-08-09 | Outpatient (CLI) | payer MEDICARE, OTHER ==
[2022-08-09 16:23] LABS: BASOPHILS ABSOLUTE AUTO 0.06 K/mm3 (0.00-0.23); BASOPHILS PERCENT AUTO 1 % (0-2); EOSINOPHILS ABSOLUTE AUTO 0.22 K/mm3 (0.00-0.68); EOSINOPHILS PERCENT AUTO 3 % (0-6); Hematocrit 32.8 % (37.0-53.0); Hemoglobin 11.5 g/dL (13.5-17.5); IMMATURE GRAN ABSOLUTE AUTO 0.02 K/mm3 (0.00-0.10); IMMATURE GRAN PERCENT AUTO 0 % (0-1); LYMPHOCYTES ABSOLUTE AUTO 1.71 K/mm3 (0.84-5.20); LYMPHOCYTES PERCENT AUTO 25 % (21-46); MONOCYTES PERCENT AUTO 6 % (4-13); Mean Corpuscular HGB 31.3 pg (26.0-34.0); Mean Corpuscular HGB Conc 35.1 g/dL (31.5-36.5); Mean Corpuscular Volume 89 fL (80-100); Mean Platelet Volume 9.9 fL (9.1-12.4); NEUTROPHILS ABSOLUTE AUTO 4.32 K/mm3 (1.96-9.15); NEUTROPHILS PERCENT AUTO 64 % (41-73); Platelet Count 263 K/mm3 (150-400); RDW Coefficient Variation 14.8 % (11.7-14.2); Red Blood Cell Count 3.68 M/mm3 (4.30-5.90); White Blood Cell Count 6.73 K/mm3 (4.00-11.30)
[2022-08-09 16:24] LABS: Bun/Creatinine Ratio 9.9 (12.0-20.0); Calcium, Blood 8.8 mg/dL (8.5-10.1); Creatinine, Blood 3.03 mg/dL (0.60-1.20); Potassium, Blood 4.1 mmol/L (3.5-5.5)
== END | disposition home or self-care (01) ==
LOC: LAB 16:15 → LAB SHORT 16:15
PROVIDERS: Physician Assistant Surgical
DX: R42 Dizziness and giddiness (principal)
CPT/HCPCS: 80048; 84484; 85025

== ENCOUNTER → 2022-09-30 | Outpatient (CLI) | payer MEDICARE ==
[2022-10-06 09:12] LABS: METANEPH/CREAT RATIO 0.4 (0.0-1.0)
== END | disposition home or self-care (01) ==
LOC: LAB SHORT 12:05 → LAB 12:05
PROVIDERS: Internal Medicine Nephrology
DX: N18.30 Chronic kidney disease, stage 3 unspecified (principal); D63.1 Anemia in chronic kidney disease; M10.9 Gout, unspecified; N25.81 Secondary hyperparathyroidism of renal origin; R94.5 Abnormal results of liver function studies
CPT/HCPCS: 82570; 83835

== ENCOUNTER → 2023-02-18 | Outpatient (CLI) | payer MEDICARE ==
[2023-02-18 11:22] LABS: BASOPHILS ABSOLUTE AUTO 0.05 K/mm3 (0.00-0.23); BASOPHILS PERCENT AUTO 1 % (0-2); EOSINOPHILS ABSOLUTE AUTO 0.23 K/mm3 (0.00-0.68); EOSINOPHILS PERCENT AUTO 3 % (0-6); Hematocrit 32.4 % (37.0-53.0); Hemoglobin 11.4 g/dL (13.5-17.5); IMMATURE GRAN ABSOLUTE AUTO 0.02 K/mm3 (0.00-0.10); IMMATURE GRAN PERCENT AUTO 0 % (0-1); LYMPHOCYTES ABSOLUTE AUTO 1.59 K/mm3 (0.84-5.20); LYMPHOCYTES PERCENT AUTO 21 % (21-46); MONOCYTES ABSOLUTE AUTO 0.35 K/mm3 (0.16-1.47); MONOCYTES PERCENT AUTO 5 % (4-13); Mean Corpuscular HGB 31.8 pg (26.0-34.0); Mean Corpuscular HGB Conc 35.2 g/dL (31.5-36.5); Mean Corpuscular Volume 90 fL (80-100); Mean Platelet Volume 9.9 fL (9.1-12.4); NEUTROPHILS ABSOLUTE AUTO 5.26 K/mm3 (1.96-9.15); NEUTROPHILS PERCENT AUTO 70 % (41-73); Platelet Count 265 K/mm3 (150-400); RDW Coefficient Variation 13.9 % (11.7-14.2); RDW Standard Deviation 45.6 fL (35.1-46.3); Red Blood Cell Count 3.59 M/mm3 (4.30-5.90)
[2023-02-18 11:40] LABS: Albumin, Blood 3.8 g/dL (3.4-5.0); Albumin/Globulin Ratio 1.1 (0.8-1.8); Bilirubin, Total 0.4 mg/dL (0.1-1.0); Bun/Creatinine Ratio 12.5 (12.0-20.0); Creatinine, Blood 2.96 mg/dL (0.60-1.20); Globulin, Blood 3.4 g/dL (2.2-4.0); Magnesium, Blood 1.8 mg/dL (1.6-2.4); Potassium, Blood 4.5 mmol/L (3.5-5.5); Total Protein, Blood 7.2 g/dL (6.4-8.2)
== END | disposition home or self-care (01) ==
LOC: LAB SHORT 11:16 → LAB 11:16
PROVIDERS: Physician Assistant
DX: N39.0 Urinary tract infection, site not specified (principal); N18.4 Chronic kidney disease, stage 4 (severe); R42 Dizziness and giddiness
CPT/HCPCS: 80053; 83735; 85025; 87077; 87086; 87186

== ENCOUNTER → 2023-04-02 | Outpatient (CLI) | payer MEDICARE ==
[2023-04-02 14:52] LABS: BASOPHILS ABSOLUTE AUTO 0.05 K/mm3 (0.00-0.23); BASOPHILS PERCENT AUTO 1 % (0-2); EOSINOPHILS ABSOLUTE AUTO 0.23 K/mm3 (0.00-0.68); EOSINOPHILS PERCENT AUTO 2 % (0-6); Hematocrit 33.9 % (37.0-53.0); IMMATURE GRAN ABSOLUTE AUTO 0.04 K/mm3 (0.00-0.10); IMMATURE GRAN PERCENT AUTO 0 % (0-1); LYMPHOCYTES ABSOLUTE AUTO 1.57 K/mm3 (0.84-5.20); LYMPHOCYTES PERCENT AUTO 16 % (21-46); MONOCYTES ABSOLUTE AUTO 0.48 K/mm3 (0.16-1.47); MONOCYTES PERCENT AUTO 5 % (4-13); Mean Corpuscular HGB 31.8 pg (26.0-34.0); Mean Corpuscular HGB Conc 35.4 g/dL (31.5-36.5); Mean Corpuscular Volume 90 fL (80-100); NEUTROPHILS ABSOLUTE AUTO 7.66 K/mm3 (1.96-9.15); NEUTROPHILS PERCENT AUTO 76 % (41-73); Platelet Count 274 K/mm3 (150-400); RDW Coefficient Variation 14.8 % (11.7-14.2); RDW Standard Deviation 48.6 fL (35.1-46.3); Red Blood Cell Count 3.77 M/mm3 (4.30-5.90); White Blood Cell Count 10.03 K/mm3 (4.00-11.30)
[2023-04-02 15:01] LABS: Albumin, Blood 3.8 g/dL (3.4-5.0); Albumin/Globulin Ratio 1.3 (0.8-1.8); Bilirubin, Total 0.4 mg/dL (0.1-1.0); Bun/Creatinine Ratio 11.9 (12.0-20.0); Calcium, Blood 8.8 mg/dL (8.5-10.1); Creatinine, Blood 2.52 mg/dL (0.60-1.20); Magnesium, Blood 1.7 mg/dL (1.6-2.4); Potassium, Blood 4.2 mmol/L (3.5-5.5); Total Protein, Blood 6.8 g/dL (6.4-8.2)
== END ==
LOC: LAB SHORT 14:46 → LAB 14:46
PROVIDERS: Emergency Medicine
DX: R55 Syncope and collapse (principal); R82.79 Other abnormal findings on microbiological examination of urine; Z87.448 Personal history of other diseases of urinary system
CPT/HCPCS: 80053; 83735; 85025; 87077; 87086; 87186

== ENCOUNTER → 2023-07-12 | Outpatient (CLI) | payer MEDICARE ==
[2023-07-12 14:23] LABS: Source, Urine Clean Catch
[2023-07-12 15:23] LABS: Appearance, Urine Cloudy (Clear); Color, Urine Yellow (P-Yellow); Leukocyte Esterase, Urine 2+ (Neg)
[2023-07-12 15:24] LABS: Bilirubin, Urine Neg (Neg); Blood, Urine Trace (Neg); Glucose Qualitative, Urine Neg (Normal); Ketones, Urine Neg (Neg); Nitrite, Urine Neg (Neg); Protein, Urine 2+ (Neg); Urobilinogen, Urine NORM (Normal)
[2023-07-12 15:29] LABS: Bacteria Many /hpf; Red Blood Cells, Urine Not Seen /hpf (0-2); Squamous Epithelial Cells Few /hpf (Few); White Blood Cells, Urine 50-100 /hpf (0-5)
== END | disposition home or self-care (01) ==
LOC: LAB SHORT 04:30
PROVIDERS: Physician Assistant
DX: R35.0 Frequency of micturition (principal)
CPT/HCPCS: 81001; 87077; 87086; 87186

== ENCOUNTER → 2024-01-21 | Outpatient (CLI) | payer MEDICARE ==
[~2024-01-21] MED LIST changes: +CIPR500 PO
[2024-01-22 10:42] LABS: Stool Occult Bld Immuno 1 Positive (NEGATIVE)
== END | disposition home or self-care (01) ==
LOC: LAB 10:25 → LAB SHORT 10:25
PROVIDERS: Physician Assistant
DX: R19.5 Other fecal abnormalities (principal)
CPT/HCPCS: G0328

== ENCOUNTER 2024-03-23 20:42 | Inpatient (IN) | payer MEDICARE, OTHER ==
[~2024-03-23] VITALS: Ht 172.7 cm; Wt 67.6 kg
[~2024-03-23 20:42] MED LIST changes: -AMLODIPINE BESY10 MG PO; +Amlodipine Bes2.5 MG PO
[2024-03-23 21:36] LABS: BASOPHILS ABSOLUTE AUTO 0.06 K/mm3 (0.00-0.23); BASOPHILS PERCENT AUTO 1 % (0-2); EOSINOPHILS PERCENT AUTO 6 % (0-6); Hematocrit 35.6 % (37.0-53.0); Hemoglobin 11.8 g/dL (13.5-17.5); IMMATURE GRAN ABSOLUTE AUTO 0.04 K/mm3 (0.00-0.10); IMMATURE GRAN PERCENT AUTO 0 % (0-1); LYMPHOCYTES ABSOLUTE AUTO 1.05 K/mm3 (0.84-5.20); LYMPHOCYTES PERCENT AUTO 8 % (21-46); MONOCYTES ABSOLUTE AUTO 0.49 K/mm3 (0.16-1.47); MONOCYTES PERCENT AUTO 4 % (4-13); Mean Corpuscular HGB 32.7 pg (26.0-34.0); Mean Corpuscular HGB Conc 33.1 g/dL (31.5-36.5); Mean Corpuscular Volume 99 fL (80-100); Mean Platelet Volume 10.3 fL (9.1-12.4); NEUTROPHILS PERCENT AUTO 81 % (41-73); Platelet Count 181 K/mm3 (150-400); RDW Coefficient Variation 16.2 % (11.7-14.2); RDW Standard Deviation 58.5 fL (35.1-46.3); Red Blood Cell Count 3.61 M/mm3 (4.30-5.90); White Blood Cell Count 12.54 K/mm3 (4.00-11.30)
[2024-03-23 22:00] VITALS: BP 164/84
[2024-03-23 22:02] LABS: Albumin, Blood 3.8 g/dL (3.4-5.0); Albumin/Globulin Ratio 1.3 (0.8-1.8); Bilirubin, Total 0.4 mg/dL (0.1-1.0); Bun/Creatinine Ratio 11.5 (12.0-20.0); Calcium, Blood 8.6 mg/dL (8.5-10.1); Creatinine, Blood 3.39 mg/dL (0.60-1.20); Potassium, Blood 5.2 mmol/L (3.5-5.5); Total Protein, Blood 6.8 g/dL (6.4-8.2)
[2024-03-23 22:15] VITALS: BP 170/86
[2024-03-23 22:45] VITALS: BP 182/91
[2024-03-23 23:00] VITALS: BP 172/155
[2024-03-23] MEDS ORDERED: Furosemide 10 MG/ML 4ML Vial IV ONE (23:35)
[2024-03-23] MEDS ORDERED: Ipratropium/Albuterol SulF 2.5-0.5MG/3 ML Amp INH ONE (23:35)
[2024-03-24] VITALS (22 sets, daily range): BP systolic 137–204; BP diastolic 67–121
[2024-03-24] MEDS ORDERED: CATAPRES-TTS 11 EAC1 TOP (00:07)
[2024-03-24] MEDS ORDERED: FLUTICASONE PRO16 GM (00:07)
[2024-03-24] MEDS ORDERED: Ondansetron HCl 2 MG / ML 2ML Vial IV PRN (01:35)
[2024-03-24] MEDS ORDERED: FLU VACC TS2024-25(6MOS UP)/PF 45 MCG/0.5 ML SYRINGE IM ONE (01:35)
[2024-03-24] MEDS ORDERED: HydrALAZINE HCl 20 MG / ML 1ML Vial IV PRN (03:10)
[2024-03-24 05:28] LABS: Source, Urine Foley catheter
[2024-03-24 05:39] LABS: BASOPHILS ABSOLUTE AUTO 0.06 K/mm3 (0.00-0.23); BASOPHILS PERCENT AUTO 1 % (0-2); EOSINOPHILS ABSOLUTE AUTO 0.38 K/mm3 (0.00-0.68); EOSINOPHILS PERCENT AUTO 4 % (0-6); Hematocrit 34.8 % (37.0-53.0); Hemoglobin 11.5 g/dL (13.5-17.5); IMMATURE GRAN ABSOLUTE AUTO 0.02 K/mm3 (0.00-0.10); IMMATURE GRAN PERCENT AUTO 0 % (0-1); LYMPHOCYTES ABSOLUTE AUTO 0.99 K/mm3 (0.84-5.20); LYMPHOCYTES PERCENT AUTO 10 % (21-46); MONOCYTES ABSOLUTE AUTO 0.33 K/mm3 (0.16-1.47); MONOCYTES PERCENT AUTO 4 % (4-13); Mean Corpuscular Volume 97 fL (80-100); NEUTROPHILS PERCENT AUTO 81 % (41-73); Platelet Count 179 K/mm3 (150-400); RDW Coefficient Variation 16.1 % (11.7-14.2); RDW Standard Deviation 56.4 fL (35.1-46.3); Red Blood Cell Count 3.59 M/mm3 (4.30-5.90); White Blood Cell Count 9.48 K/mm3 (4.00-11.30)
--- NOTE | 2024-03-24 05:39 | NUR ---
SPOKE WITH DR LIM CONCERNING PT'S ISSUE WITH SMALL VOIDS. BLADDER SCAN REVEALS PT HAS RESIDUAL OF >1525 ML URINE. 16 DANISH SETHI CATHETER PLACED. PT STATES WHILE PROCEDURE BEING DONE THAT HE HAS TO SELF CATH AT HOME EACH NIGHT. ALSO ORDER RECEIVED FOR HYDRALAZINE FOR ELEVATED BLOOD PRESSURES. HAVE GIVEN 10 MG IV. IMPROVING RESULTS. PT COMPLAINS OF CHEST PAIN IN LEFT CHEST THAT IS REPRODUCEABLE BY HAVING HIM BREATHE IN AGAINS RESISTANCE. PT ENCOURAGED TO TAKE DEEP BREATH, AND COUGH. THIS RESOLVES CHEST PAIN. REPORT GIVEN TO ESTEFANY CEJA.
[2024-03-24 05:44] LABS: Appearance, Urine Clear (Clear); Bilirubin, Urine Neg (Neg); Blood, Urine Neg (Neg); Color, Urine Yellow (P-Yellow); Glucose Qualitative, Urine Neg (Neg); Ketones, Urine Neg (Neg); Leukocyte Esterase, Urine Neg (Neg); Nitrite, Urine Neg (Neg); Protein, Urine 3+ (Neg); Urobilinogen, Urine NORM (Normal); pH, Urine 6.5 (5.0-8.0)
[2024-03-24] MEDS ORDERED: Omeprazole 20 MG CapCR PO SCH (06:00)
[2024-03-24] MEDS ORDERED: Albuterol 2.5 MG/3 ML VIAL INH PRN (06:10)
[2024-03-24] MEDS ORDERED: Ipratropium/Albuterol SulF 2.5-0.5MG/3 ML Amp INH SCH (06:10)
[2024-03-24 06:17] LABS: Bacteria Few /hpf; Red Blood Cells, Urine 0-2 /hpf (0-2); Squamous Epithelial Cells Few /hpf (Few)
[2024-03-24 06:28] LABS: Albumin, Blood 3.3 g/dL (3.4-5.0); Albumin/Globulin Ratio 1.1 (0.8-1.8); Bilirubin, Total 0.5 mg/dL (0.1-1.0); Bun/Creatinine Ratio 11.9 (12.0-20.0); Calcium, Blood 8.8 mg/dL (8.5-10.1); Creatinine, Blood 3.36 mg/dL (0.60-1.20); Potassium, Blood 4.8 mmol/L (3.5-5.5); Total Protein, Blood 6.3 g/dL (6.4-8.2)
--- NOTE | 2024-03-24 06:32 | NUR ---
ASSUMED CARE THIS PT ARRIVE TO PCU AT APPROXIMATELY 0600. PT AOX4 ON BIPAP WITH NO EXTRA BLEED IN O2. PT DENIES ANY PAIN AND HAS NO S/S OF PAIN. PT HAS A NONPRODUCTIVE COUGH WITH 1-2+ EDEMA IN THE LOWER EXTREMETIES.
[2024-03-24] MEDS ORDERED: Carvedilol 6.25 MG Tab PO SCH (08:00)
[2024-03-24] MEDS ORDERED: Bumetanide 0.25 MG/ML 4ML ViaL IV SCH (09:00)
[2024-03-24] MEDS ORDERED: Furosemide 10 MG/ML 4ML Vial IV SCH (09:00)
[2024-03-24] MEDS ORDERED: Lisinopril 20 MG Tab PO SCH (09:00)
[2024-03-24] MEDS ORDERED: AmLODIPine Besylate 5 MG Tab PO SCH ×2 (09:00)
[2024-03-24] MEDS ORDERED: Gemfibrozil 600 MG Tab PO SCH (09:00)
[2024-03-24] MEDS ORDERED: Enoxaparin 30 MG/0.3 ML SYR SC SCH (09:00)
[2024-03-24] MEDS ORDERED: Atorvastatin 40 MG Tab PO SCH (09:00)
[2024-03-24] MEDS ORDERED: Aspirin 81 MG Chew PO SCH (09:00)
[2024-03-24] MEDS ORDERED: Tamsulosin HCl 0.4 MG Cap PO SCH (09:00)
[2024-03-24] MEDS ORDERED: Mag Hydrox/Al Hydrox/Simeth 18 ML,Lidocaine 2% Viscous Soln 9 ML,Atropine/Scopalam/Hyos... PO ONE (11:20)
--- NOTE | 2024-03-24 18:58 | NUR ---
PT HAS ALTERNATED BETWEEN BIPAP, RA AND 2.5L NASAL CANNULA DURING THIS SHIFT. PT HAD REPORTED INCREASED GERD PAIN THIS AFTERNOON WHICH WAS RELIEVED WITH GI COCKTAIL. HE DENIES CP OR SOB. VSS. SPO2 >92% WITH RA AND NASAL CANNULA. FAMILY WOULD LIKE UPDATE FROM MD ONLY IN THE AM NOT FROM NURSING STAFF. DAVID
[2024-03-25] VITALS (7 sets, daily range): BP systolic 113–149; BP diastolic 55–87
--- NOTE | 2024-03-25 01:40 | NUR ---
TRANSFER REPORT TAKEN FROM ASSEMBLER GARMENT FORM TO ASSUME CARE OF PT. PT TRANSFERED FROM PCU TO ROOM [address] PT RESTING IN BED WITHOUT DISTRESS. CALL LIGHT WITHIN REACH.
--- NOTE | 2024-03-25 04:02 | NUR ---
SHIFT SUMMARY PT TRANSFERED FROM PCU TO SURGICAL UNIT AT 0140. NO ACUTE CHANGES SINCE TRANSFER. PT RESP E/U WITHOUT DISTRESS. SETHI IN PLACE PATENT AND DRAINING. PT ON 1000 L FLUID RESTRCITION AND HAS MAXED OUT ON FLUID LIMIT FOR THE SHIFT. PT REQUESTS FLUIDS AND HAS TO BE REMINDED THAT HE IS ON A FLUID RESTICTION. BUT IS COMPLIANT ONCE HE IS REMINDED OF RESTRICTION. 24 HOUR URINE COLLECTION IN PROGRESS. PT A/OX4, VITALS STABLE. BED IN LOWEST POSITION, CALL LIGHT WITHIN REACH.
[2024-03-25 06:33] LABS: BASOPHILS ABSOLUTE AUTO 0.09 K/mm3 (0.00-0.23); BASOPHILS PERCENT AUTO 1 % (0-2); EOSINOPHILS ABSOLUTE AUTO 0.67 K/mm3 (0.00-0.68); EOSINOPHILS PERCENT AUTO 7 % (0-6); Hematocrit 33.8 % (37.0-53.0); Hemoglobin 11.4 g/dL (13.5-17.5); IMMATURE GRAN ABSOLUTE AUTO 0.04 K/mm3 (0.00-0.10); IMMATURE GRAN PERCENT AUTO 0 % (0-1); LYMPHOCYTES ABSOLUTE AUTO 1.35 K/mm3 (0.84-5.20); LYMPHOCYTES PERCENT AUTO 13 % (21-46); MONOCYTES PERCENT AUTO 7 % (4-13); Mean Corpuscular HGB 32.8 pg (26.0-34.0); Mean Corpuscular HGB Conc 33.7 g/dL (31.5-36.5); Mean Corpuscular Volume 97 fL (80-100); NEUTROPHILS ABSOLUTE AUTO 7.24 K/mm3 (1.96-9.15); NEUTROPHILS PERCENT AUTO 72 % (41-73); Platelet Count 167 K/mm3 (150-400); RDW Coefficient Variation 15.9 % (11.7-14.2); RDW Standard Deviation 56.6 fL (35.1-46.3); Red Blood Cell Count 3.48 M/mm3 (4.30-5.90); White Blood Cell Count 10.09 K/mm3 (4.00-11.30)
[2024-03-25 06:53] LABS: Albumin, Blood 3.1 g/dL (3.4-5.0); Anion Gap 13 mmol/L (3-11); Blood Urea Nitrogen 46 mg/dL (8-24); Bun/Creatinine Ratio 12.2 (12.0-20.0); CO2, Blood 21 mmol/L (21-32); Calcium, Blood 8.7 mg/dL (8.5-10.1); Chloride, Blood 110 mmol/L (98-108); Creatinine, Blood 3.78 mg/dL (0.60-1.20); Glomerular Filtration Rate 16 (60-); Glucose, Blood 73 mg/dL (70-99); Magnesium, Blood 2.1 mg/dL (1.6-2.4); Phosphorus, Blood 3.4 mg/dL (2.5-4.9); Potassium, Blood 4.8 mmol/L (3.5-5.5); Sodium, Blood 139 mmol/L (136-145)
[2024-03-25] MEDS ORDERED: ALBU2.5V5 INH (08:27)
--- NOTE | 2024-03-25 09:03 | NUR ---
PT HAS WHEEZES THROUGHOUT ALL LUNG RILEY, STATES HE TAKES ALBUTEROL PRN AT HOME. NOTIFIED DR. BURGESS, ORDER RECIEVED FOR ALBUTEROL. PT STABLE, O2 SATS 93% ON 3LNC.
[2024-03-25] MEDS ORDERED: Albuterol 2.5 MG/3 ML VIAL INH PRN (09:05)
[2024-03-25] MEDS ORDERED: Metoprolol Tartrate 1 MG/ML 5 ML VIAL IV ONE ×2 (16:40→18:10)
--- NOTE | 2024-03-25 16:41 | NUR ---
[employer] CALLED @ 1604 NOTIFYING THAT THIS PT CONVERTED TO AFIB W/ HR IN THE 120'S. THIS RN NOTIFIED DR. BURGESS OF CHANGE IN PT STATUS, EKG ORDERED, DR. BURGESS TO COME EVALUATE EKG AND PUT IN FURTHER ORDERS. PT'S BP IS STABLE, DENIES CHEST PAIN/PRESSURE. 1640 - NOTIFIED DR. BURGESS OF AFIB FINDINGS WHICH SHOW AFIB W/ RVR AND OF PT'S HR UP TO 150 BPM, SUSTAINING 120-130. ORDER RECIEVED FOR IV METOPROLOL.
--- NOTE | 2024-03-25 17:20 | NUR ---
METOPROLOL IV GIVEN ORDERED, PT CURRENTLY AFIB W/ HR OF 104. DENIES ANY NEW CHEST PAIN/DISCOMFORT.
--- NOTE | 2024-03-25 17:23 | NUR ---
PT REQUESTING TO CHANGE CODE STATUS FROM DNR TO FULL CODE. DAUGHTER AT BEDSIDE. NOTIFIED DR. BURGESS, ORDER RECIEVED TO CHANGE STATUS TO FULL CODE.
--- NOTE | 2024-03-25 18:10 | NUR ---
PT'S HR SUSTAINING AFIB W/ HR OF 130-140 AFTER IV METOPROLOL. GAVE PT SCHEDULED COREG. PT STILL DENIES CHEST PAIN/PRESSURE, IS SITTING UP EATING DINNER. NOTIFIED DR. BURGESS, ORDERED RECIEVED FOR IV METOPROLOL. NOTIFIED DR. BURGESS OF SCHEDULED COREG, VERIFIED OK TO GIVE IV METOPROLOL.
[2024-03-25 18:51] LABS: Magnesium, Blood 2.1 mg/dL (1.6-2.4); Phosphorus, Blood 3.4 mg/dL (2.5-4.9)
--- NOTE | 2024-03-25 19:27 | NUR ---
SHIFT SUMMARY PT IS A/OX4, USING CALL LIGHT APPROPRIATELY. BED ALARM ON PT CAN BE SLIGHTLY FORGETFUL. LUNG SOUNDS DIMINISHED, NO WHEEZES PRESENT AT THIS TIME. SEE NOTES ABOUT CARDIAC EVENTS, PT CURRENTLY IN AFIB SUSTAINING 110-120'S. BP STABLE. DENIES CHEST PAIN, PT RESTING COMFORTABLY IN BED. MEDICATED PT PER EMAR. PT HAS MOIST COUGH, EDEMA IN BLE MINIMAL. PT HAS BEEN RESTING IN BED ALL DAY, REFUSED REPOSITIONING. CONT BIOX IN PLACE, O2 SATS >92% ON 3LNC. REPORT TO ONCOMING NURSE RAHAT.
--- NOTE | 2024-03-25 20:05 | NUR ---
REPORTED PT HAVING AFIB WITH UNCONTROLLED RATE DURING DAY.PT HAS HAD LOPRESSOR DOSING AND RATE IS 105-111.PT NOT REPORTED BEING SYMPTOMATIC RELATED TO THIS.PT WITH ELEVATED BNP AND RISING.DR LUCIO IS ON THIS CASE AND HAS BEEN MANAGING PTS DIURETICS.I CALLED DR PEREZ TO DISCUSS ABOVE AND REVIEWED PTS EF PER ECHO REPORT.DR PEREZ STATES HE WILL DEFER TO DR LUCIO REGARDING DIURETIC MANAGEMENT.
--- NOTE | 2024-03-26 03:21 | NUR ---
TELE PT RESPONDED WELL TO IV METOPROLOL GIVEN JUST BEFORE SHIFT CHANGE FOR HIS HR OF 130'-140'S/AFIB. I CHECKED IN WITH PRINCIPAL CLERK SHORTLY AFTER RECEIVING REPORT ON PT, AND PT HR WAS IN THE LOW 100'S. PT HR HAS BEEN CONTROLLED T/O THE SHIFT. HR ON AVERAGE HAS BEEN IN THE 80'S TO LOW 100'S PER PABLO PRINCIPAL CLERK.
[2024-03-26 04:56] VITALS: BP 128/79
--- NOTE | 2024-03-26 05:18 | NUR ---
SHIFT SUMMARY PT HAS RESTED MOST OF THE NIGHT. PT A/OX4, BUT IS FORGETFUL AT TIMES. PT WOKE UP ONCE THIS SHIFT FORGETFUL TO HIS SURROUNDINGS AND PULLED OFF HIS BIOX SENSOR AND WAS PULLING ON HIS CATHETER. PT WAS EASILY REORIENTED TO PLACE AND SITUATION. RATE HAS BEEN CONTROLLED ON TELE, ONE BRIEF EPISODE OF HR JUMPING TO AFIB 130'S PER UNDERWRITING CONSULTANT, BUT EVENT WAS VERY BRIEF ONLY A FEW SECONDS PER THEIR REPORT. RATE HAS BEEN CONTROLLED T/O THE SHIFT. VITALS ARE STABLE. PT AMBULATED TO THE [facility], PT IS WEAK AND UNSTEADY WITH AMBULATION. 24 HOUR URINE COLLECTED AND SENT THIS AM. PLAN OF CARE REMAINS UNCHANGED. BED IN LOWEST POSITION, CALL LIGHT WITHIN REACH.
[2024-03-26 05:30] LABS: Hematocrit 34.3 % (37.0-53.0); Hemoglobin 11.2 g/dL (13.5-17.5)
[2024-03-26 06:02] LABS: Anion Gap 12 mmol/L (3-11); Blood Urea Nitrogen 54 mg/dL (8-24); Bun/Creatinine Ratio 13.7 (12.0-20.0); CO2, Blood 20 mmol/L (21-32); Calcium, Blood 8.8 mg/dL (8.5-10.1); Chloride, Blood 112 mmol/L (98-108); Creatinine, Blood 3.93 mg/dL (0.60-1.20); Glomerular Filtration Rate 15 (60-); Glucose, Blood 88 mg/dL (70-99); Magnesium, Blood 2.1 mg/dL (1.6-2.4); Phosphorus, Blood 3.7 mg/dL (2.5-4.9); Potassium, Blood 4.5 mmol/L (3.5-5.5); Sodium, Blood 139 mmol/L (136-145)
[2024-03-26 07:54] VITALS: BP 149/74
[2024-03-26] MEDS ORDERED: Sodium Bicarbonate 650 MG Tab PO SCH (09:00)
--- NOTE | 2024-03-26 10:22 | NUR ---
PT CONVERTED FROM AFIB TO NSR W/ HR OF 70 @ 0517 PER INSURANCE AND BENEFITS CLERK KATE. PT DENIES CHEST PAIN/DISCOMFORT, VSS.
[2024-03-26] MEDS ORDERED: ELIQUIS5 M2 PO (15:30)
--- NOTE | 2024-03-26 15:30 | NUR ---
CLARIFIED SETHI ORDER W/ DR. BURGESS, PT REPORTEDLY SELF CATHS EVERY NIGHT. DR. BURGESS SAYS OK TO PULL SETHI AND CONTINUE W/ SELF CATHS AT HOME.
[2024-03-26] MEDS ORDERED: SODBIC650 PO (15:31)
[2024-03-26 16:00] VITALS: BP 168/76
[2024-03-26 16:22] VITALS: BP 153/77
--- NOTE | 2024-03-26 16:25 | NUR ---
DISCHARGE NOTE PT IS 1ASST SB TO AMBULATE. HOME O2 EVAL DONE. PT TOLERATING CARDIAC DIET, DENIES CHEST PAIN/PRESSURE. VSS. PT ADVISED TO TAKE MEDS ORDERED ON DC PAPERWORK AFTER DISCHARGE. SETHI DC'D, TOLERATED WELL. PT DENIES SOB, O2 SATS >92% ON RA. NO TELE EVENTS THIS SHIFT, PT IN SINUS RHYTHM. REVIEWED DISCHARGE PAPERWORK W/ PATIENT AND DAUGHTER ANSHU, COPY GIVEN TO PATIENT. PT DC'D VIA WC TO PRIVATE RIDE HOME W/ BELONGINGS, PT IN STABLE CONDITION.
== END 2024-03-26 16:24 | disposition home or self-care (01) | DRG 291 ==
LOC: ER 20:42 → PCU 03-24 01:30 → ERHOLD 03-24 01:30 → PCU 03-24 06:04 → SURS 03-25 01:36
PROVIDERS: Internal Medicine; Internal Medicine Nephrology; Physician Assistant; ADMIT Student in an Organized Health Care Education/Training Program
PROC: 5A09357 Assistance with Respiratory Ventilation, Less than 24 Consecutive Hours, Continuous Positive Airway Pressure (ICD-10-PCS; principal; 2024-03-23)
DX: I13.0 Hypertensive heart and chronic kidney disease with heart failure and stage 1 through stage 4 chronic kidney disease, or unspecified chronic kidney disease (principal); I50.33 Acute on chronic diastolic (congestive) heart failure; J96.01 Acute respiratory failure with hypoxia; N18.4 Chronic kidney disease, stage 4 (severe); N17.9 Acute kidney failure, unspecified; E87.20 Acidosis, unspecified; Z66 Do not resuscitate; E78.5 Hyperlipidemia, unspecified; K21.9 Gastro-esophageal reflux disease without esophagitis; N40.0 Benign prostatic hyperplasia without lower urinary tract symptoms; J43.9 Emphysema, unspecified; F17.200 Nicotine dependence, unspecified, uncomplicated; I73.9 Peripheral vascular disease, unspecified; G47.33 Obstructive sleep apnea (adult) (pediatric); D63.1 Anemia in chronic kidney disease; E88.09 Other disorders of plasma-protein metabolism, not elsewhere classified; E86.9 Volume depletion, unspecified; I25.2 Old myocardial infarction; Z79.82 Long term (current) use of aspirin; Z79.84 Long term (current) use of oral hypoglycemic drugs; Z86.73 Personal history of transient ischemic attack (TIA), and cerebral infarction without residual deficits; Z86.718 Personal history of other venous thrombosis and embolism; Z95.5 Presence of coronary angioplasty implant and graft
CPT/HCPCS: 36415; 71046; 76770; 80053; 80069; 81001; 83735; 83880; 84100; 84145; 84156; 85014; 85018; 85025; 87086; 93005; 93010; 93306; 93970; 94640; 94660; 94664; 94760; 94761; 94762; 96374; 99285-25; A9270; J0360; J1650; J1940

== ENCOUNTER 2024-04-07 20:01 | Emergency (ER) | payer MEDICARE ==
[~2024-04-07] VITALS: Ht 172.7 cm; Wt 64.9 kg
[~2024-04-07 20:01] MED LIST changes: +ALBU2.5V5 INH; +CATAPRES-TTS 11 EAC1 TOP; +ELIQUIS5 M2 PO; +FLUTICASONE PRO16 GM; +SODBIC650 PO
[2024-04-07 21:17] LABS: BASOPHILS ABSOLUTE AUTO 0.07 K/mm3 (0.00-0.23); BASOPHILS PERCENT AUTO 1 % (0-2); EOSINOPHILS ABSOLUTE AUTO 0.64 K/mm3 (0.00-0.68); EOSINOPHILS PERCENT AUTO 7 % (0-6); Hemoglobin 12.2 g/dL (13.5-17.5); IMMATURE GRAN ABSOLUTE AUTO 0.03 K/mm3 (0.00-0.10); IMMATURE GRAN PERCENT AUTO 0 % (0-1); LYMPHOCYTES ABSOLUTE AUTO 1.04 K/mm3 (0.84-5.20); LYMPHOCYTES PERCENT AUTO 11 % (21-46); MONOCYTES ABSOLUTE AUTO 0.64 K/mm3 (0.16-1.47); MONOCYTES PERCENT AUTO 7 % (4-13); Mean Corpuscular HGB 31.8 pg (26.0-34.0); Mean Corpuscular Volume 96 fL (80-100); Mean Platelet Volume 9.9 fL (9.1-12.4); NEUTROPHILS ABSOLUTE AUTO 7.02 K/mm3 (1.96-9.15); NEUTROPHILS PERCENT AUTO 74 % (41-73); Platelet Count 315 K/mm3 (150-400); RDW Coefficient Variation 15.7 % (11.7-14.2); RDW Standard Deviation 55.6 fL (35.1-46.3); Red Blood Cell Count 3.84 M/mm3 (4.30-5.90); White Blood Cell Count 9.44 K/mm3 (4.00-11.30)
[2024-04-07 21:25] LABS: Albumin, Blood 3.1 g/dL (3.4-5.0); Albumin/Globulin Ratio 0.8 (0.8-1.8); Bilirubin, Total 0.3 mg/dL (0.1-1.0); Bun/Creatinine Ratio 16.2 (12.0-20.0); Calcium, Blood 8.7 mg/dL (8.5-10.1); Creatinine, Blood 4.33 mg/dL (0.60-1.20); Globulin, Blood 3.7 g/dL (2.2-4.0); Potassium, Blood 5.5 mmol/L (3.5-5.5); Total Protein, Blood 6.8 g/dL (6.4-8.2)
[2024-04-07] MEDS ORDERED: ALBU2.5V5 INH (21:35)
[2024-04-07] MEDS ORDERED: CLONIDINE (21:36)
[2024-04-07] MEDS ORDERED: CATAPRES0.1 MG PO (21:37)
[2024-04-07] MEDS ORDERED: TRAZ50 PO (21:37)
[2024-04-07 22:15] VITALS: BP 166/82
== END 2024-04-07 22:29 | disposition home or self-care (01) ==
LOC: ER 20:01
PROVIDERS: Physician Assistant
DX: R60.0 Localized edema (principal); I13.0 Hypertensive heart and chronic kidney disease with heart failure and stage 1 through stage 4 chronic kidney disease, or unspecified chronic kidney disease; I50.9 Heart failure, unspecified; N18.4 Chronic kidney disease, stage 4 (severe); K21.9 Gastro-esophageal reflux disease without esophagitis; J44.9 Chronic obstructive pulmonary disease, unspecified; E78.00 Pure hypercholesterolemia, unspecified; F17.210 Nicotine dependence, cigarettes, uncomplicated; Z86.73 Personal history of transient ischemic attack (TIA), and cerebral infarction without residual deficits; Z79.82 Long term (current) use of aspirin; Z79.51 Long term (current) use of inhaled steroids; Z79.899 Other long term (current) drug therapy
CPT/HCPCS: 71046; 80053; 83880; 85025; 93005; 93010; 99284-25

== ENCOUNTER 2024-04-17 08:59 | Emergency (ER) | payer MEDICARE ==
[~2024-04-17] VITALS: Ht 172.7 cm; Wt 65.3 kg
[~2024-04-17 08:59] MED LIST changes: +CATAPRES0.1 MG PO; +CLONIDINE; +TRAZ50 PO
[2024-04-17 12:50] VITALS: BP 115/71
== END 2024-04-17 12:54 | disposition home or self-care (01) ==
LOC: ER 08:59
DX: S30.0XXA Contusion of lower back and pelvis, initial encounter (principal); S39.012A Strain of muscle, fascia and tendon of lower back, initial encounter; W18.39XA Other fall on same level, initial encounter; I13.0 Hypertensive heart and chronic kidney disease with heart failure and stage 1 through stage 4 chronic kidney disease, or unspecified chronic kidney disease; N18.4 Chronic kidney disease, stage 4 (severe); I50.9 Heart failure, unspecified; J43.9 Emphysema, unspecified; I25.10 Atherosclerotic heart disease of native coronary artery without angina pectoris; I25.2 Old myocardial infarction; E78.00 Pure hypercholesterolemia, unspecified; K21.9 Gastro-esophageal reflux disease without esophagitis; F17.210 Nicotine dependence, cigarettes, uncomplicated; Z95.5 Presence of coronary angioplasty implant and graft; Z79.899 Other long term (current) drug therapy; Z79.01 Long term (current) use of anticoagulants; Z79.82 Long term (current) use of aspirin
CPT/HCPCS: 72100; 73502; 93005; 93010; 99283-25

== ENCOUNTER 2024-05-03 06:23 | Day surgery (SDC) | payer MEDICARE ==
[~2024-05-03] VITALS: Ht 170.2 cm; Wt 62.6 kg
[~2024-05-03 06:23] MED LIST changes: +ALBU90OI; -Amlodipine Bes2.5 MG PO; +CALCIUM; +CATAPRES-TTS 21 EAC1 TOP; -CLONIDINE; +ELIQUIS2.5 MG PO; -ELIQUIS5 M2 PO; +FISH OIL 1,0001 EA10 PO; +Lactated Ringer's 1,000 ML IV SCH; +MULVITA PO; +NITR.4SL SL; +PRAV20; +VITAMIN B125000 MC1 PO
[2024-05-03] MEDS ORDERED: propofoL 40 ML IV ONE (06:50)
[2024-05-03 07:05] VITALS: BP 154/82
--- NOTE | 2024-05-03 07:15 | NUR ---
History, Chart, Medications and Allergies reviewed before start of procedure. Pre-Op teaching done. Pt verbalizes understanding. Patient confirms NPO status and agrees with scheduled surgery. Patient states colon prep results light yellow without sediment. Patient States Post-Procedure ride home has been arranged.
--- NOTE | 2024-05-03 07:40 | NUR ---
05/03/24 0740 Celso Holguin MONITOR INTACT WITH CONTINUOUS PULSE OXIMETRY, CONTINUOUS END TITAL CO2, AND INTERMITTENT BLOOD PRESSURE.AND EKG ANESTHESIA PER KYLE SHEET MANAGER
[2024-05-03 08:08] VITALS: BP 122/65
--- NOTE | 2024-05-03 08:36 | NUR ---
Discharge instructions reviewed with patient. Patient verbalizes understanding. Copy given to patient to take home. Patient States Post-Procedure ride home has been arranged. Discharged via wheelchair to private car for ride home.
== END 2024-05-03 08:25 | disposition home or self-care (01) ==
LOC: ORSCMMR 06:23 → ORD 07:30 → ORSCMMR 08:25
PROVIDERS: Internal Medicine Gastroenterology
PROC: 0DBN8ZX Excision of Sigmoid Colon, Via Natural or Artificial Opening Endoscopic, Diagnostic (ICD-10-PCS; principal; 2024-05-03 07:30)
PROC: 0DBL8ZX Excision of Transverse Colon, Via Natural or Artificial Opening Endoscopic, Diagnostic (ICD-10-PCS; principal; 2024-05-03 07:30)
DX: R19.5 Other fecal abnormalities (principal); D12.3 Benign neoplasm of transverse colon; D12.5 Benign neoplasm of sigmoid colon; K62.5 Hemorrhage of anus and rectum; Z86.0100 Personal history of colon polyps, unspecified; I48.0 Paroxysmal atrial fibrillation; E78.00 Pure hypercholesterolemia, unspecified; K21.9 Gastro-esophageal reflux disease without esophagitis; N40.0 Benign prostatic hyperplasia without lower urinary tract symptoms; N18.9 Chronic kidney disease, unspecified; J44.9 Chronic obstructive pulmonary disease, unspecified; I25.2 Old myocardial infarction; G47.33 Obstructive sleep apnea (adult) (pediatric); Z79.01 Long term (current) use of anticoagulants; Z79.899 Other long term (current) drug therapy; F17.210 Nicotine dependence, cigarettes, uncomplicated
CPT/HCPCS: 88305; J2704; J7120

== ENCOUNTER 2024-05-30 08:20 | Day surgery (SDC) | payer MEDICARE ==
[~2024-05-30] VITALS: Ht 172.7 cm; Wt 66.7 kg
[~2024-05-30 08:20] MED LIST changes: -Lactated Ringer's 1,000 ML IV SCH
[2024-05-30 08:50] VITALS: BP 161/80
[2024-05-30] MEDS ORDERED: NS 250 ML IV ONE (09:48)
[2024-05-30] MEDS ORDERED: Heparin Sodium 1000 Units/ML 10ML MDV ONE (09:48)
[2024-05-30] MEDS ORDERED: Midazolam HCl 1MG / ML 2ML Vial ONE (10:05)
[2024-05-30] MEDS ORDERED: FentaNYL Citrate 50 MCG/ML 2 ML Injection ONE (10:05)
[2024-05-30] MEDS ORDERED: NS 500 ML IV ONE (10:05)
[2024-05-30] MEDS ORDERED: Heparin Sodium 10,000 Units/ML 1ML MDV ONE (10:36)
[2024-05-30 11:05] VITALS: BP 131/104
--- NOTE | 2024-05-30 11:05 | NUR ---
PT BACK TO RECOVERY ROOM.
[2024-05-30 11:15] VITALS: BP 119/70
--- NOTE | 2024-05-30 11:27 | NUR ---
PT EATING SANDWICH AND DRINKING COFFEE. FAMILY AT BEDSIDE.
[2024-05-30 11:53] VITALS: BP 139/82
--- NOTE | 2024-05-30 12:15 | NUR ---
PT WHEELED OUT OF DEPT. DAUGHTER HAS D/C INSTRCUTIONS. IV WAS D/C CATHETER INTACT.
== END 2024-05-30 13:06 | disposition home or self-care (01) ==
LOC: MHTC 08:20
DX: N18.6 End stage renal disease (principal); J44.9 Chronic obstructive pulmonary disease, unspecified; F17.210 Nicotine dependence, cigarettes, uncomplicated; I50.9 Heart failure, unspecified; Z79.899 Other long term (current) drug therapy
CPT/HCPCS: 36558; 76937; 77001; 99152; 99153; C1750; C1769; C1894; J1644; J2250; J3010; J7040; J7050

== ENCOUNTER → 2024-06-11 | Outpatient (CLI) | payer MEDICARE ==
[2024-06-11 14:14] LABS: BASOPHILS ABSOLUTE AUTO 0.06 K/mm3 (0.00-0.23); BASOPHILS PERCENT AUTO 1 % (0-2); EOSINOPHILS ABSOLUTE AUTO 1.52 K/mm3 (0.00-0.68); EOSINOPHILS PERCENT AUTO 14 % (0-6); Hematocrit 31.8 % (37.0-53.0); Hemoglobin 10.7 g/dL (13.5-17.5); IMMATURE GRAN ABSOLUTE AUTO 0.04 K/mm3 (0.00-0.10); IMMATURE GRAN PERCENT AUTO 0 % (0-1); LYMPHOCYTES ABSOLUTE AUTO 1.71 K/mm3 (0.84-5.20); LYMPHOCYTES PERCENT AUTO 16 % (21-46); MONOCYTES ABSOLUTE AUTO 0.75 K/mm3 (0.16-1.47); MONOCYTES PERCENT AUTO 7 % (4-13); Mean Corpuscular HGB 29.4 pg (26.0-34.0); Mean Corpuscular HGB Conc 33.6 g/dL (31.5-36.5); Mean Corpuscular Volume 87 fL (80-100); Mean Platelet Volume 9.1 fL (9.1-12.4); NEUTROPHILS ABSOLUTE AUTO 6.72 K/mm3 (1.96-9.15); NEUTROPHILS PERCENT AUTO 62 % (41-73); Platelet Count 259 K/mm3 (150-400); RDW Coefficient Variation 16.4 % (11.7-14.2); RDW Standard Deviation 51.9 fL (35.1-46.3); Red Blood Cell Count 3.64 M/mm3 (4.30-5.90)
[2024-06-11 14:25] LABS: Albumin/Globulin Ratio 0.8 (0.8-1.8); Bilirubin, Total 0.3 mg/dL (0.1-1.0); Bun/Creatinine Ratio 6.4 (12.0-20.0); Calcium, Blood 8.5 mg/dL (8.5-10.1); Creatinine, Blood 2.99 mg/dL (0.60-1.20); Globulin, Blood 3.8 g/dL (2.2-4.0); Potassium, Blood 4.1 mmol/L (3.5-5.5); Total Protein, Blood 6.8 g/dL (6.4-8.2)
== END | disposition home or self-care (01) ==
LOC: LAB SHORT 14:09 → LAB 14:09
DX: R42 Dizziness and giddiness (principal); R30.0 Dysuria
CPT/HCPCS: 80053; 85025; 87077; 87086; 87147; 87186

== ENCOUNTER → 2024-07-25 | Outpatient (CLI) | payer MEDICARE ==
[2024-07-25 12:17] LABS: Source, Urine Clean Catch
[2024-07-25 14:32] LABS: Appearance, Urine Cloudy (Clear); Bilirubin, Urine Neg (Neg); Blood, Urine 2+ (Neg); Glucose Qualitative, Urine Neg (Neg); Ketones, Urine Neg (Neg); Leukocyte Esterase, Urine 3+ (Neg); Nitrite, Urine Neg (Neg); Protein, Urine 3+ (Neg); Urobilinogen, Urine NORM (Normal)
[2024-07-25 15:02] LABS: Color, Urine Pale Yellow (P-Yellow)
[2024-07-25 15:03] LABS: Amorphous Light (0-Heavy); Bacteria Many /hpf; Squamous Epithelial Cells Rare /hpf (Few); White Blood Cells, Urine 50-100 /hpf (0-5)
== END ==
LOC: LAB 12:12 → LAB SHORT 12:12 → LAB FUT 07-25 12:05
PROVIDERS: Urology
DX: N39.0 Urinary tract infection, site not specified (principal)
CPT/HCPCS: 81001; 87086; 87147

== ENCOUNTER → 2024-09-13 | Outpatient (CLI) | payer MEDICARE ==
[2024-09-13 07:32] LABS: Source, Urine Clean Catch
[2024-09-13 08:13] LABS: Bilirubin, Urine Neg (Neg); Blood, Urine 2+ (Neg); Glucose Qualitative, Urine Neg (Normal); Ketones, Urine Neg (Neg); Leukocyte Esterase, Urine 2+ (Neg); Nitrite, Urine Neg (Neg); Protein, Urine 3+ (Neg); Specific Gravity, Urine 1.015 (1.003-1.022); Urobilinogen, Urine NORM (Normal)
[2024-09-13 08:14] LABS: Appearance, Urine Turbid (Clear); Bacteria Many /hpf; Color, Urine Amber (P-Yellow); Squamous Epithelial Cells Few /hpf (Few); White Blood Cells, Urine TNTC /hpf (0-5)
== END | disposition home or self-care (01) ==
LOC: LAB 07:26 → LAB SHORT 07:26 → LAB FUT 09-12 09:25
PROVIDERS: Physician Assistant
DX: N39.0 Urinary tract infection, site not specified (principal)
CPT/HCPCS: 81001; 87077; 87086; 87147; 87186

== ENCOUNTER 2024-09-27 07:36 | Day surgery (SDC) | payer MEDICARE, OTHER ==
[~2024-09-27] VITALS: Ht 172.7 cm; Wt 67.0 kg
[~2024-09-27 07:36] MED LIST changes: -CALCIUM; +CALCIUM PO
[2024-09-27] MEDS ORDERED: ANORO ELLIPTA1 EACH INH (07:38)
[2024-09-27 07:40] VITALS: BP 172/83
[2024-09-27] MEDS ORDERED: Heparin Sodium 1000 Units/ML 10ML MDV ONE ×2 (08:00→08:02)
[2024-09-27] MEDS ORDERED: NS 1,000 ML IV ONE ×2 (08:00→08:02)
[2024-09-27] MEDS ORDERED: Nitroglycerin 2 MG/20 ML BTL ONE (08:03)
[2024-09-27] MEDS ORDERED: Lidocaine HCl 2% 20 ML MDV ONE (08:03)
[2024-09-27] MEDS ORDERED: FentaNYL Citrate 50 MCG/ML 2 ML Injection ONE (08:50)
[2024-09-27] MEDS ORDERED: Midazolam HCl 1MG / ML 2ML Vial ONE (08:50)
[2024-09-27 09:34] VITALS: BP 153/77
[2024-09-27 09:45] VITALS: BP 144/73
[2024-09-27 10:00] VITALS: BP 131/82
--- NOTE | 2024-09-27 10:17 | NUR ---
PATIENT TO RECOVERY ROOM S/P ATTEMPTED ELLYPSIS FISTULA CREATION. PT ARRIVED BACK AT 0936 AWAKE AND ALERT, DENIES ALL COMPLAINTS. PROCEDURE WAS UNSUCCESSFUL. DR MAGANA UPDATED BOTH PT AND PT'S FAMILY. NO NEED TO KEEP F/U APPOINTMENTS W HIM OR ULTRASOUND. PT TO BE REFERRED TO SURGERY, OFFICE TO CONTACT PT REGARDING THIS PER DR MAGANA. VENOUS SITE ONLY TO RIGHT ARM REVIEWED, SITE STABLE, DRSG C/D/I WITHOUT SWELLING, BLEEDING, OR TENDERNESS. PT GABBIE FODD/FLUIDS. VSS.
[2024-09-27 10:26] VITALS: BP 126/68
--- NOTE | 2024-09-27 10:51 | NUR ---
VERBAL AND WRITTEN DISCHARGE INFORMATION GIVEN TO PT AND PT'S FAMILY W CLEAR UNDERSTANDING. VSS. IV DC'D INTACT. PT DENIES COMPLAINTS. RIGHT FOREARM DRSG SITE WNL. PT DC'D HOME IN STABLE CONDITION AT 1038 VIA WHEELCHAIR. PT DC'D HOME IN CARE OF PT'S DAUGHTER.
== END 2024-09-27 11:15 | disposition home or self-care (01) ==
LOC: MHTC 07:36
DX: I12.0 Hypertensive chronic kidney disease with stage 5 chronic kidney disease or end stage renal disease (principal); N18.6 End stage renal disease; J44.9 Chronic obstructive pulmonary disease, unspecified; F17.210 Nicotine dependence, cigarettes, uncomplicated; G47.33 Obstructive sleep apnea (adult) (pediatric); I72.4 Aneurysm of artery of lower extremity; Z79.01 Long term (current) use of anticoagulants; Z79.899 Other long term (current) drug therapy; Z95.5 Presence of coronary angioplasty implant and graft; Z99.2 Dependence on renal dialysis
CPT/HCPCS: 76937; 93005; 93010; 99152; 99153; C1889; C1894; J1644; J2250; J3010; J7030

== ENCOUNTER 2025-02-27 11:16 | Emergency (ER) | payer MEDICARE ==
[~2025-02-27] VITALS: Ht 167.6 cm; Wt 62.6 kg
[~2025-02-27 11:16] MED LIST changes: +ANORO ELLIPTA1 EACH INH
[2025-02-27 14:43] VITALS: BP 143/68
== END 2025-02-27 13:45 | disposition home or self-care (01) ==
LOC: ER 11:16
DX: M25.552 Pain in left hip (principal); S09.90XA Unspecified injury of head, initial encounter; I13.0 Hypertensive heart and chronic kidney disease with heart failure and stage 1 through stage 4 chronic kidney disease, or unspecified chronic kidney disease; I50.9 Heart failure, unspecified; N18.4 Chronic kidney disease, stage 4 (severe); I25.10 Atherosclerotic heart disease of native coronary artery without angina pectoris; J43.9 Emphysema, unspecified; I25.2 Old myocardial infarction; E78.00 Pure hypercholesterolemia, unspecified; K21.9 Gastro-esophageal reflux disease without esophagitis; F17.210 Nicotine dependence, cigarettes, uncomplicated; Z95.5 Presence of coronary angioplasty implant and graft; Z86.73 Personal history of transient ischemic attack (TIA), and cerebral infarction without residual deficits; Z79.01 Long term (current) use of anticoagulants; Z79.899 Other long term (current) drug therapy; W18.30XA Fall on same level, unspecified, initial encounter
CPT/HCPCS: 70450; 72192; 73502; 99283-25